=== PATIENT | female | born 1970 | race Caucasian/White ===

== ENCOUNTER → 2019-05-07 06:50 | Outpatient (CLI) | payer BC, SELFPAY ==
--- NOTE | ~2019-05-07 | MM_ITS ---
EXAMINATION: MM screening [facility] BI w pradeep HISTORY: Screening mammogram TECHNIQUE: Craniocaudal and mediolateral oblique 3-D tomosynthesis images were obtained and synthetic 2-D images were generated. CAD analysis was submitted and interpreted. COMPARISON: 04/10/2018, 03/03/2017, 02/03/2015 bilateral digital screening mammogram examinations BREAST PARENCHYMAL COMPOSITION: There are scattered areas of fibroglandular density. FINDINGS: There is no evidence of suspicious mass, calcification, or architectural distortion to sugg est malignancy in either breast. There has been no suspicious interval change. IMPRESSION: 1. No mammographic evidence of malignancy. 2. Recommend routine screening mammography in one year. BI-RADS Category 1: Negative Reviewed, dictated and finalized at location B. 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
== END ==
PROVIDERS: PCP Student in an Organized Health Care Education/Training Program; Visit Provider Student in an Organized Health Care Education/Training Program
DX: Z12.31 Encounter for screening mammogram for malignant neoplasm of breast (principal)
CPT/HCPCS: 77063; 77067

== ENCOUNTER → 2020-06-16 07:15 | Outpatient (CLI) | payer BC, SELFPAY ==
--- NOTE | ~2020-06-16 | MM_ITS ---
EXAMINATION: MM screening [facility] BI w pradeep HISTORY: Screening TECHNIQUE: Craniocaudal and mediolateral oblique 3-D tomosynthesis images were obtained and synthetic 2-D images were generated. CAD analysis was submitted and interpreted. COMPARISON: Comparison to multiple prior studies sequentially, with oldest reviewed study dated 09/22. BREAST PARENCHYMAL COMPOSITION: There are scattered areas of fibroglandular density. FINDINGS: There is a developing asymmetry upper outer quadrant of the left breast, middle third. The right breast is stable without evidence for malignancy. IMPRESSION: 1. Focal asymmetry upper outer quadrant of the left breast. 2. Additional mammographic views and possible breast ultrasound are recommended. BI-RADS Category 0: Incomplete: Needs additional imaging evaluation. Reviewed, dictated and finalized at location A. IMPRESSION: 1. Focal asymmetry upper outer quadrant of the left breast. 2. Additional mammographic views and possible breast ultrasound are recommended . BI-RADS Category 0: Incomplete: Needs additional imaging evaluation.
== END ==
PROVIDERS: Visit Provider Student in an Organized Health Care Education/Training Program
DX: Z12.31 Encounter for screening mammogram for malignant neoplasm of breast (principal); R92.8 Other abnormal and inconclusive findings on diagnostic imaging of breast
CPT/HCPCS: 77063; 77067

== ENCOUNTER → 2020-07-07 08:27 | Outpatient (CLI) | payer BC, SELFPAY ==
--- NOTE | ~2020-07-07 | MMUS_ITS ---
3. EXAMINATION: MM diagnostic mammo unilat LT, US breast LT limited HISTORY: Focal mammographic asymmetry reported in upper outer quadrant of left breast on 06/16/2020 sc reening mammogram TECHNIQUE: Additional 3-D tomosynthesis images of the left breast were performed and synthetic 2-D im ages were generated. Rolled medial and rolled lateral craniocaudal views. CAD analysis was submitted and interpreted. High resolution upper outer quadrant left breast ultrasound was performed. COMPARISON: 06/16/2020 bilateral digital screening mammogram FINDINGS: MAMMOGRAPHIC FINDINGS: No suspicious mass, architectural distortion, malignant calcification, skin thickening or retraction is evident. ULTRASOUND: 3:00 6 cm from nipple: Parallel circumscribed sonolucency measuring 2.3 x 4.6 mm, with through transm ission, consistent with small cyst. No suspicious mass or shadowing is detected. IMPRESSION: 1. No mammographic evidence of malignancy 2. Routine annual mammographic screening is recommended BI-RADS Category 2: Benign finding(s). Reviewed, dictated and finalized at location A. IMPRESSION: 1. No mammographic evidence of malignancy 2. Routine annual mammographic screening is recommended BI-RADS Category 2: Benign finding(s).
== END ==
PROVIDERS: Visit Provider Student in an Organized Health Care Education/Training Program
DX: N60.02 Solitary cyst of left breast (principal)
CPT/HCPCS: 76642; 77065

== ENCOUNTER 2021-07-14 07:58 | Outpatient (CLI) | payer BC, SELFPAY ==
--- NOTE | ~2021-07-14 | MM_ITS ---
EXAMINATION: MM screening [facility] BI w pradeep HISTORY: Screening mammogram TECHNIQUE: Craniocaudal and mediolateral oblique 3-D tomosynthesis images were obtained and synthetic 2-D images were generated. CAD analysis was submitted and interpreted. COMPARISON: diagnostic left mammogram and limited left breast ultrasound 06/16/2020, 05/2019, 04/10/2018, 03/03/2017/bilateral screening mammogram examinations BREAST PARENCHYMAL COMPOSITION: There are scattered areas of fibroglandular density. FINDINGS: Stable mild fibroglandular asymmetry Minimal benign calcification. There is no evidence of suspicious mass, calcification, or architectura l distortion to suggest malignancy in either breast. There has been no suspicious interval change. IMPRESSION: 1. No mammographic evidence of malignancy. 2. Recommend routine screening mammography in one year. BI-RADS Category 2: Benign finding(s). Reviewed, dictated and finalized at location A.
== END 2021-07-14 07:59 | disposition home or self-care (01) ==
LOC: ANHIMG 07:59
PROVIDERS: Visit Provider Student in an Organized Health Care Education/Training Program
DX: Z12.31 Encounter for screening mammogram for malignant neoplasm of breast (principal)
CPT/HCPCS: 77063; 77067

== ENCOUNTER 2021-09-15 09:57 | Outpatient (CLI) | payer BC, SELFPAY ==
--- NOTE | ~2021-09-15 | XR_ITS ---
XR hand RT min 3V DATE: 09/15/2021 10:14 INDICATION: Right thumb pain TECHNIQUE: 3 views of right hand COMPARISON: None FINDINGS: There is mild osteoarthritic change at some of the interphalangeal joints and also at the f irst carpometacarpal joint. No fracture, dislocation, periosteal reaction or bone destruction, erosive change or chondrocalcinosi s. 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 IMPRESSION: Mild first carpometacarpal and scattered interphalangeal joint oste oarthritis
== END 2021-09-15 09:58 | disposition home or self-care (01) ==
PROVIDERS: PCP Family Medicine; Visit Provider Family Medicine
DX: M18.11 Unilateral primary osteoarthritis of first carpometacarpal joint, right hand (principal); M19.041 Primary osteoarthritis, right hand
CPT/HCPCS: 73130

== ENCOUNTER 2022-06-03 01:21 | Day surgery (SDC) | payer BC, SELFPAY ==
[2022-05-20 12:51] VITALS: BMI 36.3
--- NOTE | 2022-06-02 15:44 | PM.HPGS ---
History of Present Illness History of Present Illness Consent: Risks, benefits, and alternatives have been discussed and questions answered. Patient agrees to proceed with procedure. Chief complaint: neoplasm screening Narrative: Maria Victoria Velarde is a 52 year old female Referred for colon cancer screening. Review of Systems Review of Systems: All systems reviewed & are unremarkable except as noted in HPI and below PMFSH Past Medical History Medical History Hyperlipidemia Restless leg syndrome Type II diabetes mellitus Surgical History Surgical History History of section x 2 History of cholecystectomy History of endometrial ablation History of tonsillectomy Family History Family History Mother Hypertension Family history of malignant neoplasm of breast in first degree relative Social History Social History Smoking status: Current every day smoker Tobacco type: cigarettes Second hand tobacco smoke exposure: No Alcohol intake: never Living arrangements: with family Spiritual care concerns: No Meds Home Medications and Allergies Home Medications Medication Instructions Recorded Confirmed Type cholecalciferol (vitamin D3) 50 50 mcg PO DAILY 05/22/20 05/20/22 History mcg (2,000 unit) capsule escitalopram oxalate 20 mg tablet 30 mg PO DAILY 05/22/20 05/20/22 History (Lexapro) gabapentin 100 mg capsule 100 mg PO BID 05/22/20 05/20/22 History gabapentin 300 mg capsule 300 mg PO DAILY 05/22/20 05/20/22 History metformin 500 mg tablet 500 mg PO BID 05/22/20 05/20/22 History simvastatin 10 mg tablet 10 mg PO DAILY 05/22/20 05/20/22 History Allergies Allergy/AdvReac Type Severity Reaction Status Date / Time prednisone AdvReac Unknown Swelling Verified 06/03/22 08:17 Exam Const: General: alert Orientation/consciousness: patient oriented x3 Resp: Auscultation: clear to auscultation bilaterally Cardio: Rhythm: regular rhythm GI: GI Palp: Yes Soft to palpation and No Tenderness to palpation present (GI) Neuro: General: patient oriented x3 Assessment and Plan Assessment and plan (1) Colon cancer screening: Code(s): Z12.11 - Encounter for screening for malignant neoplasm of colon Status: Acute Assessment and Plan: Colonoscopy with possible biopsy or polypectomy or cautery or injection of substances.
[2022-06-03 08:18] VITALS: BP 113/76; PULSE 103; RESP 16; TEMP 36.4; O2SAT 96
[2022-06-03] MEDS: LACTATED RINGERS 1,000 ML 150 ML IV CONT (08:26)
[2022-06-03 09:05] LABS: Glucose Point of Care 178 mg/dl (65-105)
--- NOTE | 2022-06-03 09:30 | P.PNAN_ITS ---
Anes - Initial Pre Proc Eval Procedure: Operation Date: 06/03/22 09:30 Proposed Procedures p Screening Colonoscopy - Khanh Alberto MD Date/Time: 06/03/22 09:30 Surgeon: Khanh Alberto MD Pre Op Diagnosis: neoplasm screening Patient Data Age: 52 Gender: F Height: 1.68 m Weight: 100.3 kg Last Vital Signs Temp 97.6 F 06/03/22 08:18 Pulse 103 H 06/03/22 08:18 Resp 16 06/03/22 08:18 BP 113/76 06/03/22 08:18 Pulse Ox 96 06/03/22 08:18 O2 Del Method Room Air 06/03/22 08:18 Allergies Allergy/AdvReac Type Severity Reaction Status Date / Time prednisone AdvReac Unknown Swelling Verified 06/03/22 08:17 Home Medications Medication Instructions Recorded Confirmed Type cholecalciferol (vitamin D3) 50 50 mcg PO DAILY 05/22/20 05/20/22 History mcg (2,000 unit) capsule escitalopram oxalate 20 mg tablet 30 mg PO DAILY 05/22/20 05/20/22 History (Lexapro) gabapentin 100 mg capsule 100 mg PO BID 05/22/20 05/20/22 History gabapentin 300 mg capsule 300 mg PO DAILY 05/22/20 05/20/22 History metformin 500 mg tablet 500 mg PO BID 05/22/20 05/20/22 History simvastatin 10 mg tablet 10 mg PO DAILY 05/22/20 05/20/22 History Laboratory Tests 06/03/22 08:27 POC Capillary Glucose 178 mg/dl H mg/dl (65-105) Patient hx anesthesia problems: none Family hx anesthesia problems: none Results Review: All pre-operative results and documents have been reviewed as part of the pre- operative evaluation. [facility] Past Medical History Medical History Hyperlipidemia Restless leg syndrome Type II diabetes mellitus Surgical History Surgical History History of section x 2 History of cholecystectomy History of endometrial ablation History of tonsillectomy Family History Family History Mother Hypertension Family history of malignant neoplasm of breast in first degree relative Social History Social History Smoking status: Current every day smoker Tobacco type: cigarettes Second hand tobacco smoke exposure: No Alcohol intake: never Living arrangements: with family Spiritual care concerns: No Anes - Eval Final PreProcedure Day of Procedure 06/03/22 09:30 Patient weight: obese Heart: regular rate and rhythm Lungs: clear to auscultation Airway: Mallampati scale class II Neurological: alert and oriented Last oral intake: >/= 8 hours ASA classification: III Emergent: no Anesthetic plan: proceed Anesthesia type and monitoring: general GIVS and standard monitoring Results Review: All pre-operative results and documents have been reviewed as part of the pre- operative evaluation. Informed Consent: The patient's anesthetic plan and its attendant risks and benefits were discussed with the patient/family/POA. Questions were solicited and answers provided to the satisfaction of the patient/family/POA.
[2022-06-03 09:51] VITALS: BP 105/66; PULSE 83; RESP 19; O2SAT 95
[2022-06-03 10:01] VITALS: BP 128/79; PULSE 84; RESP 24; O2SAT 95
[2022-06-03 10:11] VITALS: BP 118/81; PULSE 87; RESP 24; O2SAT 98
== END 2022-06-03 10:20 | disposition home or self-care (01) ==
PROVIDERS: PCP Family Medicine; Visit Provider Internal Medicine Gastroenterology
PROC: 0DJD8ZZ Inspection of Lower Intestinal Tract, Via Natural or Artificial Opening Endoscopic (ICD-10-PCS; CPT 45378; principal; 2022-06-03 09:30)
DX: Z12.11 Encounter for screening for malignant neoplasm of colon (principal); K64.8 Other hemorrhoids; D12.8 Benign neoplasm of rectum; D12.3 Benign neoplasm of transverse colon; D12.0 Benign neoplasm of cecum; K57.30 Diverticulosis of large intestine without perforation or abscess without bleeding; E78.5 Hyperlipidemia, unspecified; E11.9 Type 2 diabetes mellitus without complications; G25.81 Restless legs syndrome; Z79.84 Long term (current) use of oral hypoglycemic drugs; F17.210 Nicotine dependence, cigarettes, uncomplicated; E66.9 Obesity, unspecified; Z68.35 Body mass index [BMI] 35.0-35.9, adult
CPT/HCPCS: 45385; 45380; 82948; 88305; J2704; J7120

== ENCOUNTER → 2022-10-03 07:38 | Outpatient (CLI) | payer BC, SELFPAY ==
--- NOTE | ~2022-10-03 | MM_ITS ---
EXAMINATION: MM diagnostic [facility] BI w pradeep HISTORY: Bilateral focal asymmetries on screening mammogram TECHNIQUE: Additional 3-D tomosynthesis images of the breasts were performed and synthetic 2-D images were generated. CAD analysis was submitted and interpreted. COMPARISON: 09/06/2022, 07/14/2021, 07/07/2020, 06/16/2020, 05/07/2019, 04/10/2018 FINDINGS: There is a return to baseline fibroglandular appearance with spot compression of the breast s in the areas questioned on screening mammogram. No suspicious mass, calcification, or architectural distortion are identified. IMPRESSION: 1. No mammographic evidence of malignancy. 2. Recommend routine screening mammography in one year. BI-RADS Category 1: Negative Reviewed, dictated and finalized at location A.
== END ==
PROVIDERS: PCP Family Medicine; Visit Provider Registered Nurse
DX: R92.8 Other abnormal and inconclusive findings on diagnostic imaging of breast (principal)
CPT/HCPCS: 77062; 77066; G0279

== ENCOUNTER 2022-11-11 15:46 | Outpatient (CLI) | payer BC, SELFPAY ==
--- NOTE | 2022-11-11 | ECG_ITS ---
Measurements Intervals [place] Rate: 86 P: 33 MS: 153 QRS: 69 QRSD: 99 T: 57 QT: 377 QTc: 452 Interpretive Statements SINUS RHYTHM INCOMPLETE RIGHT BUNDLE BRANCH BLOCK [90+ ms QRS DURATION, TERMINAL R IN V1/V2, 40+ ms S IN I/aVL/V4/V5/V6] BORDERLINE ECG NO PREVIOUS ECG AVAILABLE FOR COMPARISON Electronically Signed On 11-12-2022 12:36:40 CDT by Joshua Brewer M.D.
--- NOTE | ~2022-11-11 | XR_ITS ---
EXAMINATION: XR chest 2V Exam Date/Time: 11/11/2022 16:30 CDT HISTORY: preprocedural examination, SURGERY SCHEDULED FOR 11/18 Comparison: 07/31/2014. RESULT: Lines, tubes, and devices: Cholecystectomy clips. Lungs and pleura: Clear. Cardiomediastinal silhouette: Stable. Other: No acute osseous or upper abdominal finding. IMPRESSION: No acute cardiopulmonary process. Reviewed, dictated and finalized at location K.
[2022-11-11 16:50] LABS: Hematocrit 43.9 % (37.0-47.0); Hemoglobin 15.1 g/dL (12.0-15.0); Mean Corpuscular HGB Conc 34.4 g/dl (32-36); Mean Corpuscular Hemoglobin 33.1 pg (26-34); Mean Corpuscular Volume 96.3 fl (80-100); Mean Platelet Volume 9.3 fl (7.4-10.4); Platelet Count Result 283 k/mm3 (150-375); Red Blood Count 4.56 M/mm3 (4.2-5.4); White Blood Count 13.3 K/mm3 (4.5-10.0)
[2022-11-11 17:04] LABS: Alanine Aminotransferase 36 U/L (6-35); Alkaline Phosphatase 72 U/L (38-126); Anion Gap 12 mmol/L (8-16); Aspartate Amino Transferase 41 U/L (14-36); Bilirubin,Total 0.5 mg/dL (0.2-1.3); Blood Urea Nitrogen 9 mg/dL (7-17); Calcium 9.9 mg/dL (8.4-10.2); Carbon Dioxide 25 mmol/L (22-30); Chloride 104 mmol/L (98-107); Estimated Glomerular Filt Rate > 60; Glucose 62 mg/dL (65-110); Sodium 141 mmol/L (137-145)
[2022-11-11 18:34] LABS: Band Neutrophils Percent 1 % (0-6); Eosinophils Absolute Manual 0.13 K/mm3 (0.02-0.5); Eosinophils Percent Manual 1 % (0-4); Lymphocytes Absolute Manual 6.91 K/mm3 (1.1-4.5); Monocytes Absolute Manual 0.66 K/mm3 (0.1-0.90); Monocytes Percent Manual 5 % (3-9); Neutrophils Absolute Manual 5.58 K/mm3 (1.7-7.2); Neutrophils Percent Manual 41 % (46-73); Platelet Estimate Adequate (Adequate); Total Cells Counted 100
[2022-11-11 18:35] LABS: Schistocytes None Seen (NORMAL)
== END 2022-11-11 15:47 | disposition home or self-care (01) ==
LOC: ANHLAB 15:48
PROVIDERS: PCP Family Medicine; Visit Provider Orthopaedic Surgery
DX: Z01.818 Encounter for other preprocedural examination (principal); I45.10 Unspecified right bundle-branch block; G56.01 Carpal tunnel syndrome, right upper limb; I49.8 Other specified cardiac arrhythmias
CPT/HCPCS: 36415; 71046; 80053; 85025; 93005

== ENCOUNTER 2022-12-09 20:21 | Emergency (ER) | payer BC, SELFPAY ==
[2022-12-09] VITALS (13 sets, daily range): BP systolic 115–135; BP diastolic 70–107; PULSE 76–84; RESP 12–19; TEMP 36.3–36.6; O2SAT 94–99
--- NOTE | ~2022-12-09 | CT_ITS ---
EXAMINATION: CT abdomen pelvis w con DATE: 12/09/2022 22:53 INDICATION: Abdominal pain and low back pain TECHNIQUE: Computed tomography (CT) of the abdomen and pelvis was performed with 100 mL Omnipaque-350 intravenous contrast. Automated exposure control and iterative reconstruction technique were employe d. The dose-length product was 1253.03 mGy-cm. COMPARISON: None FINDINGS: Lung bases are clear. Heart size is normal. Atherosclerotic coronary artery calcific lesion. No peric ardial or pleural effusion. Cholecystectomy clips the gallbladder fossa. There are few splenic calcif ication consistent with old granulomatous disease. Liver, and bilateral adrenal glands and kidneys ar e normal. 5 mm likely dystrophic calcification at the body the pancreas cephalad to the normal calibe r main pancreatic duct suggesting sequela of chronic pancreatitis. Pancreas otherwise unremarkable wi th no peripancreatic changes suggest acute pancreatitis. Normal retrocecal appendix. No abnormal mina l wall thickening or obstruction. Bladder, anteverted uterus and bilateral adnexa are unremarkable. 6 mm nabothian cysts at the cervix. Very small fat-containing left inguinal hernia. No free intraperit plunkett gas or fluid. No pathologically enlarged abdominal or pelvic lymphadenopathy. Moderate thoracic and mild lumbar spondylosis. IMPRESSION: 1. No acute intra-abdominal/pelvic process. Reviewed, dictated and finalized at location A.
[2022-12-09 20:59] LABS: Hematocrit 40.5 % (37.0-47.0); Hemoglobin 14.1 g/dL (12.0-15.0); Mean Corpuscular HGB Conc 34.8 g/dl (32-36); Mean Corpuscular Hemoglobin 33.4 pg (26-34); Mean Platelet Volume 9.2 fl (7.4-10.4); Platelet Count Result 213 k/mm3 (150-375); Red Blood Count 4.22 M/mm3 (4.2-5.4); Red Cell Distribution Width 12.6 % (11.5-14.5); White Blood Count 10.7 K/mm3 (4.5-10.0)
[2022-12-09 21:13] LABS: Alanine Aminotransferase 21 U/L (6-35); Albumin Level 4.4 g/dL (3.5-5.1); Alkaline Phosphatase 62 U/L (38-126); Anion Gap 7 mmol/L (8-16); Aspartate Amino Transferase 27 U/L (14-36); Bilirubin,Total 0.5 mg/dL (0.2-1.3); Blood Urea Nitrogen 8 mg/dL (7-17); Calcium 9.4 mg/dL (8.4-10.2); Carbon Dioxide 24 mmol/L (22-30); Chloride 106 mmol/L (98-107); Estimated CRCL calculation 106 ml/min; Estimated Glomerular Filt Rate > 60; Glucose 129 mg/dL (65-110); Lipase 92 U/L (23-300); Sodium 137 mmol/L (137-145)
[2022-12-09 21:29] LABS: Band Neutrophils Percent 1 % (0-6); Eosinophils Percent Manual 1 % (0-4); Lymphocytes Absolute Manual 6.52 K/mm3 (1.1-4.5); Monocytes Absolute Manual 0.74 K/mm3 (0.1-0.90); Monocytes Percent Manual 7 % (3-9); Neutrophils Absolute Manual 3.31 K/mm3 (1.7-7.2); Neutrophils Percent Manual 30 % (46-73); Platelet Estimate Adequate (Adequate); Schistocytes None Seen (NORMAL); Total Cells Counted 100
[2022-12-09 21:30] LABS: Appearance Urine Clear (Clear); Bilirubin Urine Negative (Negative); Blood Urine Negative (Negative); Color Urine Yellow (Yellow); Glucose Urine UA Negative (Negative); Ketones Urine Negative (Negative); Leukocyte Esterase Ur Negative LEU/UL (Negative); Nitrate Urine Negative (Negative); Protein Urine Negative (Negative); Specific Grav Ur 1.011 (1.001-1.035); Urobilinogen Urine 0.2 mg/dL (<2.0); pH Urine 5.5 (5.0-9.0)
[2022-12-09 21:43] LABS: Add Urine Microscopic? NO
[2022-12-09] MEDS: ACETAMINOPHEN 500 MG TABLET 1000 MG PO (22:10)
[2022-12-09] MEDS: methocarbamoL 750 MG TABLET 1500 MG PO (22:11)
[2022-12-09] MEDS: LIDOCAINE 5% PATCH 1 PATCH TRANSDERM (22:11)
--- NOTE | 2022-12-09 23:43 | ED.GENADULT ---
HPI - General Adult General Chief complaint: Abdominal Pain Stated complaint: abd pain Time Seen by Provider: 12/09/22 21:31 History of Present Illness HPI narrative: This is a 52-year-old female presenting with lower back and abdomen pain. She says it started yesterday and is a stabbing/ aching pain that is bandlike across her back and lower abdomen. Date out 10 intensity constant. She has never had pain like this before, is worse with movement and there are no exacerbating symptoms. She denies fever chills nausea vomiting diarrhea chest pain difficulty breathing, constipation, vaginal discharge bleeding or urinary symptoms. She has not taken anything for pain. no history of cancer, fevers, IV drug abuse, trauma, urinary incontinence, bowel incontinence or saddle anesthesia. Related Data Home Medications Medication Instructions Recorded Confirmed cholecalciferol (vitamin D3) 50 50 mcg PO DAILY 05/22/20 05/20/22 mcg (2,000 unit) capsule escitalopram oxalate 20 mg tablet 30 mg PO DAILY 05/22/20 05/20/22 (Lexapro) gabapentin 100 mg capsule 100 mg PO BID 05/22/20 05/20/22 gabapentin 300 mg capsule 300 mg PO DAILY 05/22/20 05/20/22 metformin 500 mg tablet 500 mg PO BID 05/22/20 05/20/22 simvastatin 10 mg tablet 10 mg PO DAILY 05/22/20 05/20/22 Allergies Allergy/AdvReac Type Severity Reaction Status Date / Time prednisone AdvReac Unknown Swelling Verified 08/04/22 12:39 [facility] Past Medical History Medical History Diverticulosis Hyperlipidemia Restless leg syndrome Type II diabetes mellitus Surgical History Surgical History History of section x 2 History of cholecystectomy History of colonoscopy 06/03/22 History of endometrial ablation History of tonsillectomy Family History Family History Mother Hypertension Family history of malignant neoplasm of breast in first degree relative Social History Social History Smoking status: Current every day smoker Tobacco type: cigarettes Second hand tobacco smoke exposure: No Alcohol intake: never Substance use: never Lack of Transportation: No Lack of Food: Never True Current Housing: I Have Housing Concerned About Future Housing: No Difficulty Paying Gas/Electric Bills: No Difficulty Paying for Meds: No Currently Unemployed: No Education: Trade/Vocational Certificate Difficulty w/ Childcare or Family Care: No Living arrangements: with family Occupation/Education: occupation Gender identity (if verbalized by the patient): Female Sexual Orientation (if Verbalized by the Patient): Straight or Heterosexual Spiritual care concerns: No Exam Narrative: APPEARANCE: No apparent distress. Head: atraumatic. EYES: EOMI, NOSE: Atraumatic NECK: Trachea midline RESPIRATORY: No increased rate of breathing, CTAB CARDIOVASCULAR: RRR, ABDOMINAL: soft nontender no guarding or rebound, no CVA tenderness MUSCULOSKELETAl: tenderness to palpation over the paralumbar muscles on the back, NEURO: Alert. Moving 4/4 extremities SKIN:: Warm, dry. Normal color PSYCHIATRIC: Normal affect Course Vital Signs Vital signs: Vital Signs Temperature 97.4 F L 12/09/22 20:39 Pulse Rate 81 12/09/22 20:39 Respiratory Rate 18 12/09/22 20:39 Blood Pressure 130/79 12/09/22 20:39 Pulse Oximetry 98 12/09/22 20:39 Oxygen Delivery Room Air 12/09/22 20:39 Temperature 97.8 F 12/09/22 21:49 Pulse Rate 83 12/09/22 21:49 Respiratory Rate 15 12/09/22 21:49 Blood Pressure 135/77 12/09/22 21:49 Pulse Oximetry 95 12/09/22 21:49 Oxygen Delivery Room Air 12/09/22 20:39 Medical Decision Making [facility] Narrative Medical decision making narrative: -Course: 52-year-old female presenting w
== END 2022-12-10 00:16 | disposition home or self-care (01) ==
PROVIDERS: Emergency Provider Emergency Medicine; PCP Family Medicine
DX: M54.50 Low back pain, unspecified (principal); E78.5 Hyperlipidemia, unspecified; E11.9 Type 2 diabetes mellitus without complications; F17.210 Nicotine dependence, cigarettes, uncomplicated
CPT/HCPCS: 36415; 74177; 80053; 81003; 83690; 85025; 99284; A9270; Q9967

== ENCOUNTER 2023-09-07 09:29 | Emergency (ER) | payer BC, SELFPAY ==
--- NOTE | ~2023-09-07 | CT_ITS ---
EXAMINATION: CT abdomen pelvis w con DATE: 09/07/2023 10:28 INDICATION: Lower abdominal pain. Nausea, vomiting, and diarrhea. TECHNIQUE: Computed tomography (CT) of the abdomen and pelvis was performed with 100 mL Omnipaque 350 intravenous contrast. Automated exposure control and iterative reconstruction technique were employe d. The dose-length product was 379.62 mGy-cm. COMPARISON: CT abdomen and pelvis 12/09/2022 FINDINGS: The visualized portions of the lung bases demonstrate minimal atelectasis. No pleural effus ion. The heart size is normal. There are coronary artery calcifications. No pericardial effusion. The liver is normal. There are changes of cholecystectomy. Calcifications in the spleen are consistent w ith old granulomatous disease. The pancreas, adrenal glands, and kidneys are normal. There are no dil ated loops of bowel. The appendix is normal. There are no pathologically enlarged lymph nodes. There is no free intraperitoneal fluid. There is calcified atherosclerosis of the aorta and many of the oth er arteries. There is moderate thoracic spondylosis and mild lumbar spondylosis. IMPRESSION: 1. No etiology for the patient's symptoms. Reviewed, dictated and finalized at location A.
--- NOTE | ~2023-09-07 | XR_ITS ---
EXAMINATION: XR chest 1V portable DATE: 09/07/2023 10:41 INDICATION: Weakness. Vomiting. Diarrhea. Nausea. TECHNIQUE: A single frontal view of the chest was obtained. COMPARISON: Chest 2 views 11/11/2022, CT abdomen and pelvis 09/07/2023 FINDINGS: There is no pneumonia, pleural effusion, or pneumothorax. The heart size is normal. IMPRESSION: 1. No acute cardiopulmonary disease. Reviewed, dictated and finalized at location A.
[2023-09-07 09:43] VITALS: BP 114/75; PULSE 89; RESP 19; TEMP 36.5; O2SAT 95
[2023-09-07 09:51] LABS: Basophils Percent Auto 0.3 % (0.2-1.2); Eosinophils Absolute Auto 0.1 K/mm3 (0-0.3); Eosinophils Percent Auto 0.7 % (0-4.4); Hematocrit 42.3 % (37.0-47.0); Hemoglobin 14.7 g/dL (12.0-15.0); Immature Granulocyte Absolute 0.04 K/mm3 (0.00-0.031); Immature Granulocyte Percent A 0.3 % (0-0.5); Lymphocytes Absolute Auto 6.04 K/mm3 (0.9-3.2); Mean Corpuscular HGB Conc 34.8 g/dl (32-36); Mean Corpuscular Hemoglobin 33.6 pg (26-34); Mean Corpuscular Volume 96.8 fl (80-100); Mean Platelet Volume 9.2 fl (7.4-10.4); Monocytes Absolute Auto 0.6 K/mm3 (0.1-0.6); Monocytes Percent Auto 4.3 % (2.6-8.5); Neutrophils Absolute Auto 6.3 K/mm3 (1.3-6.7); Neutrophils Percent Auto 48.4 % (45.5-73.1); Platelet Count Result 250 k/mm3 (150-375); Red Blood Count 4.37 M/mm3 (4.2-5.4); Red Cell Distribution Width 12.8 % (11.5-14.5); White Blood Count 13.1 K/mm3 (4.5-10.0)
[2023-09-07 09:52] LABS: Appearance Urine Clear (Clear); Bilirubin Urine Negative (Negative); Blood Urine Negative (Negative); Color Urine Yellow (Yellow); Glucose Urine UA Negative (Negative); Ketones Urine Negative (Negative); Leukocyte Esterase Ur Negative LEU/UL (Negative); Nitrate Urine Negative (Negative); Protein Urine Negative (Negative); Urobilinogen Urine 0.2 mg/dL (<2.0)
[2023-09-07 10:03] LABS: Alanine Aminotransferase 26 U/L (6-35); Albumin Level 4.8 g/dL (3.5-5.1); Alkaline Phosphatase 70 U/L (38-126); Anion Gap 9 mmol/L (4-12); Aspartate Amino Transferase 36 U/L (14-36); Bilirubin,Total 0.5 mg/dL (0.2-1.3); Blood Urea Nitrogen 7 mg/dL (7-17); Calcium 9.7 mg/dL (8.4-10.2); Carbon Dioxide 25 mmol/L (22-30); Chloride 105 mmol/L (98-107); Estimated CRCL calculation 99 ml/min; Estimated Glomerular Filt Rate > 60; Glucose 101 mg/dL (65-110); Lipase 90 U/L (23-300); Potassium 3.9 mmol/L (3.4-5.0); Sodium 139 mmol/L (137-145)
[2023-09-07 10:09] LABS: Add Urine Microscopic? NO; Specific Grav Ur 1.004 (1.001-1.035)
--- NOTE | 2023-09-07 10:13 | ECG_ITS ---
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 Measurements Intervals [place] Rate: 71 P: 46 IA: 172 QRS: 63 QRSD: 102 T: 44 QT: 428 QTc: 465 Interpretive Statements SINUS RHYTHM No previous ECG available for comparison Electronically Signed On 09-07-2023 13:50:36 CDT by Elle Early M.D.
--- NOTE | 2023-09-07 10:16 | ED.NAVMDI ---
HPI - Nausea/Vomiting/Diarrhea General Chief complaint: Nausea/Vomiting/Diarrhea Stated complaint: N/V/D, weakness X2 days Time Seen by Provider: 09/07/23 09:53 History of Present Illness HPI Narrative: 53-year-old female with a history of hyperlipidemia, type 2 diabetes, diverticulosis presents to the emergency department for N/V intermittently for a few months, worsening over the past 2 weeks. Also reporting some lower abdominal pain. Patient states every time she eats something she feels sick to her stomach and sometimes vomits. She states she has not been eating or drinking well for the past few days. She presents with her daughter at bedside he states the reason they came to the ED today was because the patient was so weak she cannot put her on a ponytail. She reports prior history of cholecystectomy, otherwise no other abdominal surgeries. She denies cough or congestion, chest pain shortness of breath, fever, dysuria or hematuria. She is reporting some pain to her flanks as well. She also notes that she has not been taking her med and dry RO because she cannot get it from the pharmacy. She said taking this 2 weeks ago. She is taking remainder of her medications including metformin. she does note that she has persistent diarrhea since her gallbladder has been removed. Related Data Home Medications Medication Instructions Recorded Confirmed cholecalciferol (vitamin D3) 50 50 mcg PO DAILY 05/22/20 08/14/23 mcg (2,000 unit) capsule escitalopram oxalate 20 mg tablet 30 mg PO DAILY 05/22/20 08/14/23 (Lexapro) gabapentin 100 mg capsule 100 mg PO BID 05/22/20 08/14/23 gabapentin 300 mg capsule 300 mg PO DAILY 05/22/20 08/14/23 metformin 500 mg tablet 500 mg PO BID 05/22/20 08/14/23 simvastatin 10 mg tablet 10 mg PO DAILY 05/22/20 08/14/23 tirzepatide 2.5 mg/0.5 mL 2.5 mg subcut WEEKLY 08/14/23 08/14/23 subcutaneous pen injector (Franck) Allergies Allergy/AdvReac Type Severity Reaction Status Date / Time prednisone AdvReac Unknown Swelling Verified 09/07/23 09:45 Review of Systems Review of Systems: CONSTITUTIONAL: Denies fever, chills, or sweats. EYES: Denies visual changes, redness, or discharge. ENT: Denies rhinorrhea, congestion, sore throat, or otalgia. CARDIOVASCULAR: Denies chest pain, palpitations, or edema. RESPIRATORY: Denies cough or dyspnea. GASTROINTESTINAL: See HPI GENITOURINARY: Denies dysuria or hematuria. SKIN: Denies rash or itching. MUSCULOSKELETAL: Denies back pain, joint pain, or myalgia. NEUROLOGIC: Denies headache, numbness, or weakness. PSYCHIATRIC: Denies anxiety or depression. [facility] Past Medical History Medical History Diverticulosis Hyperlipidemia Restless leg syndrome Type II diabetes mellitus Surgical History Surgical History History of section x 2 History of cholecystectomy History of colonoscopy 06/03/22 History of endometrial ablation History of tonsillectomy Family History Family History Mother Hypertension Family history of malignant neoplasm of breast in first degree relative Social History Social History Smoking status: Current every day smoker Tobacco type: cigarettes Second hand tobacco smoke exposure: No Alcohol intake: never Substance use: never Lack of Transportation: No Lack of Food: Never True Current Housing: I Have Housing Concerned About Future Housing: No Difficulty Paying Gas/Electric Bills: No Difficulty Paying for Meds: No Currently Unemployed: No Education: Trade/Vocational Certificate Difficulty w/ Childcare or Family Care: No Living arrangements: with family Occupation/Education: occupation Gender identity (if verbalized by the patient): Female Sexual [place]
[2023-09-07 10:31] LABS: Anisocytosis 1+
[2023-09-07 10:32] LABS: Atypical Lymphocytes Present; Platelet Estimate Adequate (Adequate); Schistocytes None Seen
[2023-09-07] MEDS: ONDANSETRON INJ 4 MG/2 ML VIAL IV PUSH (10:55)
[2023-09-07] MEDS: SODIUM CHLORIDE 0.9% IV 1,000 ML 999 ML IV CONT (10:55)
[2023-09-07 11:27] LABS: Lipase 91 U/L (23-300)
[2023-09-07 11:39] LABS: Influenza A QL RT-PCR Negative (Negative); Influenza B QL RT-PCR Negative (Negative); SARS-CoV-2 RNA PCR Negative (Negative)
[2023-09-07 12:18] VITALS: BP 126/78; PULSE 78; RESP 18; TEMP 36.8; O2SAT 100
== END 2023-09-07 12:22 | disposition home or self-care (01) ==
PROVIDERS: Emergency Medicine; Emergency Provider Physician Assistant; PCP Family Medicine
DX: R11.2 Nausea with vomiting, unspecified (principal); Z20.822 Contact with and (suspected) exposure to COVID-19; E78.5 Hyperlipidemia, unspecified; E11.9 Type 2 diabetes mellitus without complications; G25.81 Restless legs syndrome; F17.210 Nicotine dependence, cigarettes, uncomplicated; Z90.49 Acquired absence of other specified parts of digestive tract; Z79.899 Other long term (current) drug therapy; Z79.85 Long-term (current) use of injectable non-insulin antidiabetic drugs; Z79.84 Long term (current) use of oral hypoglycemic drugs
CPT/HCPCS: 36415; 71045; 74177; 80053; 81003; 83605; 83690; 85025; 87636; 93005; 96361; 96374; 99284; J2405; J7030; Q9967

== ENCOUNTER 2023-11-02 07:19 | Outpatient (CLI) | payer BC, SELFPAY ==
--- NOTE | ~2023-11-02 | MM_ITS ---
EXAMINATION: MM screening [facility] BI w pradeep HISTORY: Screening TECHNIQUE: Craniocaudal and mediolateral oblique 3-D tomosynthesis images were obtained and synthetic 2-D images were generated. CAD analysis was submitted and interpreted. COMPARISON: Comparison to multiple prior studies sequentially, with oldest reviewed study dated 07/2019. BREAST PARENCHYMAL COMPOSITION: There are scattered areas of fibroglandular density. FINDINGS: There is no evidence of suspicious mass, calcification, or architectural distortion to sugg est malignancy in either breast. There has been no suspicious interval change. IMPRESSION: 1. No mammographic evidence of malignancy. 2. Recommend routine screening mammography in one year. BI-RADS Category 1: Negative Reviewed, dictated and finalized at location B.
== END 2023-11-02 07:20 ==
PROVIDERS: PCP Nurse Practitioner Family; Visit Provider Nurse Practitioner Family
DX: Z12.31 Encounter for screening mammogram for malignant neoplasm of breast (principal)
CPT/HCPCS: 77063; 77067

== ENCOUNTER 2024-05-14 00:24 | Day surgery (SDC) | payer BC, SELFPAY ==
[2024-04-29 13:33] VITALS: BMI 25.0
--- OUTSIDE RECORDS SUMMARY | 2024-05-14 00:28 | XMS_ITS | Clinical Summary ---
Author Organization [facility] Address [address] [place] [address] Care Team Providers Care Dinkey Engine Operator Name Role Phone Unavailable Primary Care Provider Unavailabl e Source Comments [facility],non-owned Affiliates and Associated Physician Practices is amultiple site organization consisting of ambulatory clinics and hospital sitesin [place], [place], [place] and [place]. This disclosure is being madepursuant to the Care Everywhere program and may not contain all information available regarding this patient. Last updated 17.[facility] Allergies Active Allergy Reactions Criticality Noted Date Comments Prednisone Swelling 06/02/2019 Medications * Be aware that medications may not be up to date on this document. Alwaysverify current medications with the patient. Medication Sig Dispensed Refills Start Date End Date Status escitalopram (LEXAPRO) 20 MG tablet escitalopram 20 mg tablet TK 1 AND 1/2 TS PO QD Active gabapentin (NEURONTIN) 100 MG capsule gabapentin 100 mg capsule Active metFORMIN (GLUCOPHAGE) 1000 MG tablet metformin 1,000 mg tablet Active rOPINIRole (REQUIP) 0.5 MG tablet ropinirole 0.5 mg tablet Active simvastatin (ZOCOR) 20 MG tablet simvastatin 20 mg tablet Active Social History Tobacco Use Types Packs/Day Years Used Date Smoking Tobacco: Every Day Cigarettes 1 30 Smokeless Tobacco: Never Sex and Gender Information Value Date Recorded Sex Assigned at Not on file Gender Identity Female 06/02/2019 10:26 AM MUSIC INDUSTRY INTERN Sexual Orientation Not on file Last Filed Vital Signs Vital Sign Reading Time Taken Comments Blood Pressure - - Pulse 123 06/02/2019 10:06 AM MUSIC INDUSTRY INTERN Temperature 37.1 C (98.7 F) 06/02/2019 10:06 AM MUSIC INDUSTRY INTERN Respiratory Rate 20 06/02/2019 10:06 AM MUSIC INDUSTRY INTERN Oxygen Saturation 92% 06/02/2019 10:06 AM MUSIC INDUSTRY INTERN Inhaled Oxygen Concentration - - Weight 108.9 kg (240 lb) 06/02/2019 10:06 AM MUSIC INDUSTRY INTERN Height 167.6 cm (5' 6 ) 06/02/2019 10:06 AM MUSIC INDUSTRY INTERN Body Mass Index 38.74 06/02/2019 10:06 AM MUSIC INDUSTRY INTERN Plan of Treatment Health Maintenance Due Date Last Done Comments COLOGUARD (AGES 45-75) - COL ON CA SCREENING 1971 COLON MONITORING 1971 COLONOSCOPY - COLON CA SCREENING 1971 CT COLONOGRAPHY - COLON CA SCREENING 1971 Colorectal Cancer Screening 1971 FIT - COLON CA SCREENING 1971 FLEX SIG - COLON CA SCREENING 1971 MAMMOGRAM 1971 PAP SMEAR 1971 HIV SCREENING 05/31/1986 HEPATITIS C SCREENING 05/27/1989 DTAP/TDAP/TD VACCINES (1 - Tdap) 05/31/1990 HEPATITIS B VACCINE (1 of 3 - 19+ 3-dose series) 05/31/1990 PNEUMOCOCCAL VACCINE 50+ (1 of 2 - PCV) 05/31/1990 PNEUMOCOCCAL VACCINE (1 of 2 - PCV) 05/31/1990 SCREENING FOR DIABETES 06/02/2019 ZOSTER VACCINE (1 of 2) 05/31/2021 COVID-19 VACCINE (1 - 2023-2 5 season) 2023 INFLUENZA VACCINE (#1) 2023 DEPRESSION SCREENING 04/03/2024 HIB VACCINE Aged Out No longer eligi ble based on patient's age to complete this topic HPV VACCINE Aged Out No longer eligi ble based on patient's age to complete this topic MENINGOCOCCAL (Group B) VACCINE Aged Out No longer eligible based on patient's age to complete this topic MENINGOCOCCAL VACCINE Aged Out No tristan zulema eligible based on patient's age to complete this topic Maria Victoria Velarde Personal/Family Self 1970 [facility] [place] [address]
--- OUTSIDE RECORDS SUMMARY | 2024-05-14 00:28 | XMS_ITS | Referral Summary ---
Author Organization [facility] Address [address] [place] [address] Care Team Providers Care Kaiako Kura Kaupapa Maori Name Role Phone Unavailable Primary Care Provider Unavailabl e Source Comments [facility],non-owned Affiliates and Associated Physician Practices is amultiple site organization consisting of ambulatory clinics and hospital sitesin [place], [place], [place] and [place]. This disclosure is being madepursuant to the Care Everywhere program and may not contain all information available regarding this patient. Last updated 17.[facility] Allergies Active Allergy Reactions Criticality Noted Date [...] file Gender Identity Female 06/02/2019 10:26 AM BAKER PASTRY Sexual Orientation Not on file Last Filed Vital Signs Vital Sign Reading Time Taken Comments Blood Pressure - - Pulse 123 06/02/2019 10:06 AM BAKER PASTRY Temperature 37.1 C (98.7 F) 06/02/2019 10:06 AM BAKER PASTRY Respiratory Rate 20 06/02/2019 10:06 AM BAKER PASTRY Oxygen Saturation 92% 06/02/2019 10:06 AM BAKER PASTRY Inhaled Oxygen Concentration - - Weight 108.9 kg (240 lb) 06/02/2019 10:06 AM BAKER PASTRY Height 167.6 cm (5' 6 ) 06/02/2019 10:06 AM BAKER PASTRY Body Mass Index 38.74 06/02/2019 10:06 AM BAKER PASTRY Plan of Treatment Not on file
--- OUTSIDE RECORDS SUMMARY | 2024-05-14 00:28 | XMS_ITS | Clinical Summary ---
Author Organization [facility] [address] Address [address] [place] [address] Care Team Providers Care Marksmanship Instructor Name Role Phone Stacey Caldwell MD Primary Care Provider + Stacey Phillip DO Unavailable [phone] Allergies Active Allergy Reactions Criticality Noted Date Comments Prednisone Medications escitalopram (LEXAPRO) 20 mg tablet Take 1 tablet (20 mg total) by mouth daily Active gabapentin (NEURONTIN) 100 mg capsule Take 2 capsules (200 mg total) by mouth 2 (two) times a day after lunch and dinner Active metFORMIN (GLUCOPHAGE) 1,000 mg tablet Take 1 tablet (1,000 mg total) by mouth 2 (two) times a day Active simvastatin (ZOCOR) 80 mg tablet Take 1 tablet (80 mg total) by mouth every evening Active Mounjaro 7.5 mg/0.5 mL pen injector ADMINISTER 0.5 ML UNDER THE SKIN EVERY WEEK 3 Active meloxicam (MOBIC) 15 mg tablet Take 1 tablet (15 mg total) by mouth daily 4 Active omega-3 fatty acids-fish oil 300-1,000 mg capsule Take 2,400 mg by mouth daily Active cholecalciferol (VITAMIN D-3) 5,000 unit tablet daily Active aspirin 81 mg enteric coated tablet Take 1 tablet (81 mg total) by mouth daily 30 tablet 11 4 01/05/20 25 Active nicotine 21-14-7 mg/24 hr patch, TD daily, sequentialIndic ations:Tobacco abuse counseling Place 21 mg on the skin daily AND 14 mg daily AND 7 mg daily. 14 patch Active Active Problems Problem Noted Date Diagnosed Date Tobacco abuse counseling 01/05/2024 Hyperlipidemia associated with type 2 diabetes m roslynitus 01/05/2024 Coronary artery calcification 01/05/2024 Other chest pain 12/07/2023 Social History Tobacco Use Types Packs/Day Years Used Date Smoking Tobacco: Every Day Cigarettes Tobacco Cessation:Ready to Q uit: Not Asked; Counseling Given: Not Answered [facility] Utilities Answer Date Recorded In the past 12 months has th e [employer], gas, oil, or water [employer] threatened to shut off services in your home? No 12/07/2023 Social Connection and Isolat ion Panel [NHANES] Answer Date Recorded In a typical week, how many times do you talk on the phone with family, friends, or neighbors? More than three times a week 12/07/2023 How often do you get togethe r with friends or relatives? More than three times a week 12/07/2023 How often do you attend chur ch or buddhist services? Never 12/07/2023 Do you belong to any clubs o r organizations such as tenriism groups, unions, fraternal or athletic groups, or school groups? No 12/07/2023 How often do you attend meet ings of the clubs or organizations you belong to? Never 12/07/2023 Are you , , di vorced, , never , or living with a partner? 12/07/2023 Overall Financial Resource Strain (CARDIA) Answe r Date Recorded How hard is it for you to pa y for the very basics like food, housing, medical care, and heating? Not hard at all 12/07/2023 Hunger Vital Sign Answer Date Recorded Within the past 12 months, y ou worried that your food would run out before you got the money to buy more. Never true 12/07/19 24 Within the past 12 months, t he food you bought just didn't last and you didn't have money to get more. Never true 12/07/2023 PRAPARE - Transportation Answer Date Re corded In the past 12 months, has l ack of transportation kept you from medical appointments or from getting medications? No 08/2023 In the past 12 months, has l ack of transportation kept you from meetings, work, or from getting things needed for daily living? No 12/07/2023 Housing Stability Vital Sign Answer Brady e Recorded In the last 12 months, was t here a time when you were not able to pay the mortgage or rent on time? No 12/07/2023 In the past 12 months, how m any times have you moved where you were living? 0 12/07/2023 At any time in the past 12 m [facility], were you homeless or living in a chcf (including now)? No 12/07/2023 Personal Safety Answer Date Recorded Have you ever been in or are you currently in a harmful physical or emotional relationship or is someone making you feel afraid or unsafe? 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 Gender Identity Not on file Sexual Orientation Not on file Obstetrics History Last Filed Vital Signs Vital Sign Reading Time Taken Comments Blood Pressure 106/70 01/05/2024 10:27 AM CDT Pulse 87 01/05/2024 10:27 AM CDT Temperature 36.3 C (97.3 F) 12/07/2023 3:30 AM CDT Respiratory Rate 14 01/05/2024 10:27 AM CDT Oxygen Saturation 93% 01/05/2024 10:27 AM CDT Inhaled Oxygen Concentration - - Weight 68.5 kg (151 lb) 01/05/2024 10:27 AM CDT Height 165.1 cm (5' 5 ) 01/05/2024 10:27 AM CDT Body Mass Index 25.13 01/05/2024 10:27 AM CDT Plan of Treatment Health Maintenance Due Date Last Done Comments Albumin Creatinine Ratio, Urine 1971 Breast Cancer Screening-Mammogram 1971 Cervical Cancer Screening 1971 Colon Cancer Screening-Colonoscopy 1971 Depression Screening 1971 Hepatitis C Screening 1971 Dilated Eye Exam 1971 Foot Exam 1971 Pneumococcal vaccine <65 (1 of 2 - PCV) 05/31/1977 Hepatitis B Screening 05/31/1989 Regular Well Visit/Exam 18-64 05/31/1989 Zoster Vaccine (1 of 2) 05/31/2021 Covid-19 Vaccine (3 - season) 2023, 07/11/2020 Influenza Vaccine (#1) 2023 Hemoglobin A1C 06/05/2024 12/07/2023 Lipid Panel 12/06/2024 12/07/2023 eGFR 12/06/2024 12/07/2023, 12/06/2023 DTaP/Tdap/Td Vaccine (2 - Td or Tdap) 10/26/2032 Procedures Procedure Name Priority Date/Time Associated Diagnosis Comments EGFR Routine 12/07/2023 4:35 AM CDT HEMOGLOBIN A1C Routine 12/07/2023 4:35 AM CDT LIPID PANEL Routine 12/07/2023 4:35 AM CDT from Last 3 Months or Most Recently Relevant to Health Maintenance Results * eGFR (12/07/2023 4:35 AM CDT) eGFR >90 >=60 mL/min/1. 73 m2 Comment: Interpretive Data Reference Interval Normal >/= 90 mL/min/1.73m2 Mildly decreased* 60 - 89 mL/min/1.73m2 Mildly to moderately decreased 45 - 59 mL/min/1.73m2 Moderately to severely decreased 30 - 44 mL/min/1.73m2 Severely decreased 15 - 29 mL/min/1.73m2 Kidney Failure < 15 mL/min/1.73m2 *Relative to young adult level Estimated glomerular filtration rate is determined by the 2020 CKD-EPI equation recommended by the National Kidney Foundation (A Unifying Approach to GFR Estimation: Recommendations of the NKF-ASK Task Force on Reassessing the Inclusion of Race in Diagnosing Kidney Disease, JASN 2020). The CKD-EPI equation should not be used for patients with unstable renal function and has not been validated in children and those over 70. Current interpretive data was last reviewed 2021. Blood 12/07/2023 4:35 AM CDT 12/07/2023 4:46 AM CDT Evelyn Negron NP LAB BLOOD ORDERABLES Final R esult Performing Organization Address [facility] Co de Phone Number AMANDA [address] [facility] [place], [place] [id number] * (ABNORMAL) Hemoglobin A1c (12/07/2023 4:35 AM CDT) Hgb A1C 5.7(H) 4.0 - 5.6 % Estimated Average Glucose 117 mg/dL AMANDA Comment: The ADA recommends reporting an estimated Average Glucose (eAG) with all Hemoglobin A1c results using the equation derived from a study of 507 normal and diabetic adults. Minority populations were underrepresented and children were not included. (Diabetes Care 31:9792-0260, 2008). The eAG is not equivalent to a fasting glucose. Blood 12/07/2023 4:35 AM CDT 12/07/2023 4:46 AM CDT Evelyn Negron TECHNOLOGY TRAINING ASSOCIATE LAB BLOOD ORDERABLES Final R esult Performing Organization Address [facility] Co de Phone Number AMANDA ALDANA [id number] [place] [address] * (ABNORMAL) Lipid panel (12/07/2023 4:35 AM CDT) Cholesterol 156 30 - 199 mg/dL Comment: Interpretive Data Ages < or = 19 years Acceptable: <170 mg/dL Borderline high: 170-199 mg/dL High: >or= 200 mg/dL Ages > or = 20 years Desirable: <200 mg/dL Borderline high: 200-239 mg/dL High: >or= 240 mg/dL Literature References: 1. Expert Panel on Integrated Guidelines for Cardiovascular Health and Risk Reduction in Children and Adolescents. Pediatrics 2011;128:S213 2. NCEP Expert Panel. Circulation 2004;110:227 Current Interpretive Data was last revised on 2017. Triglycerides 191(H) <=149 mg/dL AMANDA ALDANA Comment: Interpretive Data Ages < or = 9 years Acceptable: <75 mg/dL Borderline high: 75-99 mg/dL High: >or= 100 mg/dL Ages 10 to 20 years Acceptable: <90 mg/dL Borderline high: 90-129 mg/dL High: >or= 130 mg/dL Ages > or = 20 years Desirable: <150 mg/dL Borderline high: 150-199 mg/dL High: 200-499 mg/dL Very high: >or= 499 mg/dL Literature References: 1. Expert Panel on Integrated Guidelines for Cardiovascular Health and Risk Reduction in Children and Adolescents. Pediatrics 2011;128:S213 2. NCEP Expert Panel. Circulation 2004;110:227 Current Interpretive Data was last revised on 2017. HDL 45 >=40 mg/dL AMANDA Comment: Interpretive Data Ages < or = 19 years Acceptable: >45 mg/dL Borderline low: 40-45 mg/dL Low: <40 mg/dL Ages > or = 20 years Desirable: >or= 60 mg/dL Low: <40 mg/dL Literature References: 1. Expert Panel on Integrated Guidelines for Cardiovascular Health and Risk Reduction in Children and Adolescents. Pediatrics 2011;128:S213 2. NCEP Expert Panel. Circulation 2004;110:227 Current Interpretive Data was last revised on 2017. LDL, calculated 79 <=129 mg/dL AMANDA Comment: Interpretive Data Ages < or = 19 years Acceptable: <110 mg/dL Borderline high: 110-129 mg/dL High: >or= 130 mg/dL Ages > or = 20 years Optimal: <100 mg/dL Near optimal: 100-129 mg/dL Borderline high: 130-159 mg/dL High: >160 mg/dL Calculated using the Franklin LDL-C estimating equation. This equation was implemented on 2023. Prior to this date LDL-C was estimated using the Friedewald equation. Literature References: 1. Expert Panel on Integrated Guidelines for Cardiovascular Health and Risk Reduction in Children and Adolescents. Pediatrics 2011;128:S213 2. NCEP Expert Panel. Circulation 2004;110:227 3. Franklin Chavez al. LILI Cardiol. 2020 August 01;5(5):540-548. doi: 10.1001/[email or web address].2020.0013 Current Interpretive Data was last revised on 2023. Non-HDL Cholesterol 111 mg/dL AMANDA Comment: Interpretive Data Ages < or = 19 years Acceptable: <120 mg/dL Borderline high: 120-144 mg/dL High: >145 mg/dL Ages > or = 20 years When triglycerides are >200 mg/dL, Non-HDL cholesterol is a secondary target of therapy with treatment goals that are 30 mg/dL greater than the LDL cholesterol target. Literature References: 1. Expert Panel on Integrated Guidelines for Cardiovascular Health and Risk Reduction in Children and Adolescents. Pediatrics 2011;128:S213 2. NCEP Expert Panel. Circulation 2004;110:227 Current Interpretive Data was last revised on 2017. Chol/HDL ratio 3 AMANDA JOVAN Blood 12/07/2023 4:35 AM CDT 12/07/2023 4:46 AM CDT us Evelyn Negron NP LAB BLOOD ORDERABLES Final R esult FABIANCK ALDANA [address] Department [place] [address] from Last 3 Months or Most Recently Relevant to Health Maintenance Insurance [employer] [address] [place] [address] Advance Directives For more information, please contact: [phone] * Full Code (Latest Code Status on File) Date Activated Date Inactivated Comments 12/07/2023 1:20 AM 12/07/2023 9:46 PM * Full Code Date Activated Date Inactivated Comments 12/07/2023 1:08 AM 12/07/2023 1:20 AM Healthcare Agents on File Name Relationship Healthcare Agent [facility] Communication Juan Velarde Spouse Health Care Agent Care Teams Marksmanship Instructor Relationship Specialty Start Date End Date Stacey Caldwell MD [address] [place] [address] PCP - General Family Medicine 12/09/22 Stacey Phillip DO [address] [place] [address] Consulting Physician Cardiology 12/07/23
--- OUTSIDE RECORDS SUMMARY | 2024-05-14 00:28 | XMS_ITS | Continuity of Care Document ---
Author Organization [facility] Address [id number] [place] [address] [address] [place] [address] Phone Care Team Providers Care Web Manager Name Role Phone Pamela Patel Unavailable Unavailable Advance Directives Directive Yes / No Effective Date File Name No Information Encounters Encounter Description Practice Location Reason(s) For Visit Diagnoses Date Provider Providers Copied on Encounter [facility], [id number] [place] [address] [address], [place], [place], [id number], [place] tel:[phone] SEC [facility] No Information [address]. [address] [facility] , [address], [place], [address], [place]. tel:[phone] Family History Family Member Type Diagnosis Age At Onset No Information Payers Payer name Insurance type Covered libertarian ID Authoriza tion(s) No Information Social History Type Description Quantity Date Captured Comments Sex Female Smoking Status No Information Chief Complaint And Reason For Visit No Information Reason For Referral Reason For Referral No Information History Of Present Illness Encounter Date Complaint History Of Prese nt Illness No Information Functional Status Date Functional Assessmen t No Information Instructions Date Instruction Additional Infor mation No Information Assessments Type Assessment Date No Information Patient Care Teams Name Effective Dates (start - stop) Status Members No Information
--- OUTSIDE RECORDS SUMMARY | 2024-05-14 00:28 | XMS_ITS | Referral Summary ---
Author Organization [facility] [address] Address [address] [place] [address] Care Team Providers Care Soil Expert Name Role Phone Stacey Caldwell MD Primary Care Provider + Stacey Phillip DO Unavailable [phone] Allergies Active Allergy Reactions Criticality Noted Date [...] uit: Not Asked; Counseling Given: Not Answered [facility] Utilities Answer Date Recorded In the past 12 months has th e [employer], gas, oil, or water [employer] threatened to shut off services in your [...] often do you attend chur ch or christian services? Never 12/07/2023 Do you belong to any clubs o r organizations such as sabianist groups, unions, fraternal or athletic groups, or [...] any time in the past 12 m [facility], were you homeless or living in a alf (including now)? No 12/07/2023 Personal Safety Answer Date Recorded Have you ever been in or are you currently in a harmful physical or emotional relationship or is someone making you feel afraid or unsafe? Denies 12/07/2023 Comments No Sex and Gender Information Value Date Recorded Sex Assigned at Not on file Legal Sex Female 10:12 AM [employer]CHO[employer] Gender Identity Not on file Sexual Orientation Not on file Last Filed [...] 01/05/2024 10:27 AM CDT Plan of Treatment Not on file Procedures Procedure Name Priority Date/Time Associated Diagnosis [...] ORDERABLES Final R esult Performing Organization Address [facility] Co ma Phone Number AMANDA ALDANA [address] [place] [address] * (ABNORMAL) Hemoglobin A1c (12/07/2023 4:35 AM CDT) Hgb A1C 5.7(H) 4.0 - 5.6 % Estimated Average Glucose 117 mg/dL AMANDA ALDANA Comment: The ADA recommends reporting an estimated Average Glucose (eAG) with all Hemoglobin A1c results using the equation derived from a study of 507 normal and diabetic adults. Minority populations were underrepresented and children were not included. (Diabetes Care 31:2893-3272, 2008). The eAG is not equivalent to a fasting glucose. Blood 12/07/2023 4:35 AM CDT 12/07/2023 4:46 AM CDT Evelyn Negron NP LAB BLOOD ORDERABLES Final R esult AMANDA [address] [facility] [place] [address] * (ABNORMAL) Lipid panel (12/07/2023 4:35 AM [...] on 2017. HDL 45 >=40 mg/dL AMANDA ALDANA Comment: Interpretive Data Ages [...] 2017. LDL, calculated 79 <=129 mg/dL AMANDA ALDANA Comment: Interpretive Data Ages [...] NCEP Expert Panel. Circulation 2004;110:227 3. Franklin Guillaume et al. LILI Cardiol. 2020 August 01;5(5):540-548. doi: 10.1001/[email or web address].2020.0013 Current Interpretive Data was last revised on 2023. Non-HDL Cholesterol 111 mg/dL AMANDA ALDANA Comment: Interpretive Data Ages [...] revised on 2017. Chol/HDL ratio 3 AMANDA ALDANA Blood 12/07/2023 4:35 AM CDT 12/07/2023 4:46 AM CDT us Evelyn Negron NP LAB BLOOD ORDERABLES Final R esult AMANDA ALDANA [address] Department [place] [address] from Last 3 Months or Most Recently Relevant to Health Maintenance Insurance [employer] [facility] [employer] [facility] [employer] [facility] Advance Directives For more information, please contact: [phone] * Full Code (Latest Code Status on File) Date Activated Date Inactivated Comments 12/07/2023 1:20 AM 12/07/2023 9:46 PM * Full Code Date Activated Date Inactivated Comments 12/07/2023 1:08 AM 12/07/2023 1:20 AM Healthcare Agents on File Name Relationship Healthcare Agent [facility] Communication Juan Velarde Spouse Health Care Agent Care Teams Soil Expert Relationship Specialty Start Date End Date Stacey Caldwell MD [address] [place] [address] PCP - General Family Medicine 12/09/22 Stacey Phillip DO [address] [address] Consulting Physician Cardiology 12/07/23
--- OUTSIDE RECORDS SUMMARY | 2024-05-14 00:28 | XMS_ITS | Data Portability ---
Author Organization [facility] [employer], Main Office Address [address] [place] [address] Care Team Providers Care Ditcher Operator Name Role Phone CHARY VELASCO Film [employer] Shift Supervisor Unavailable Assessment Encounter Date Assessment Date Assessment LastModified by Organization Details LastModified Time 05/10/2023 05/10/2023 menopausal symptoms-no vasomotor symptoms irritability and forgetfulness may improve now that sleep is imrpoved f/u in 3 months, consider SSRI if no improvement with [email or web address] Not available 05/10/2023 14:28:34 01/01/2024 01/01/2024 I have reconciled the patient's medications post their discharge from inpatient facility. [email or web address] Not available 01/01/2024 09:29:54 Plan of Treatment Reminders Order Date Submit Date Provider Last Modified By Organization Details Last Modified Time Details Appointments Physical/ Annual Wellness 2024 08:30A Markell Jones NP Not available Not available Not available Lab FSH (follicle -stimulat ing hormone), serum 2023 024 [email or web address] [address] [email or web address] [facility], [address] [place], [address], 11/28/2023 08:45:34 lh (luteiniz ing hormone), serum 2023 024 [email or web address] 77 [employer] [facility], [address] [facility], [place], [address], 11/28/2023 08:45:35 estrone (E1), free, serum 2023 024 [email or web address] 77 [employer] [facility], [address] [place], [address], 11/28/2023 08:45:35 progester one, serum 2023 024 [email or web address] 77 [employer] [facility], [address], [place], [address], 11/28/2023 08:45:35 prolactin , serum 2023 024 [email or web address] [employer] [facility], [address], [place], [address], 11/28/2023 08:45:35 testoster one, total, serum 2023 024 [email or web address] [email or web address] [facility], [address], [place], [address], 11/28/2023 08:45:35 Referral ophthalmo logist referral - Please call patient to schedule an appointme nt. Thank you. 2023 024 [facility], [address] [facility], [place], [address], 01/30/2024 07:34:08 Procedures cryosurge ry (PROC) - Right hand, third digit *Please call pt to schedule* 2023 024 geo [facility]d [facility], [address] [place], [address], 04/18/2024 11:26:09 Surgeries None recorded. Imaging None recorded. Medication Orders trazodone 50 mg tablet 2023 024 [email or web address] [id number], [address], [place], [place], [id number], 02/06/2024 16:39:21 escitalop sari 20 mg tablet 2023 024 RE[facility] #[id number], [address], [place], [place], [id number], 08/08/2023 10:30:43 meloxicam 7.5 mg tablet 2023 024 REGINA [id number], [address], [place], [place], [id number], 11/21/2023 09:44:56 Patient TargetsNo targets recorded. Patient Instructions Encounter Date Encounter Id Patient Instructions Last Modified By Organization Details Last Modified Time 01/01/2024 [id number] Thank you for your visit to our office today. We would like to request that you reach out to your referring or previous provider and request that they send us a Summary of Care in electronic form, so that we may have it on file in your medical record. At your visit, we had the medical records we needed to provide you with the best possible care; however, for insurance purposes, an electronic Summary of Care is beneficial. Thank you for your assistance in obtaining this information and we look forward to providing continued care to you. Please review your medication list from the Summary of Care for this visit. If there are any differences from what you are currently taking at home, please call us to discuss. [email or web address] Not available 01/01/2024 09:29:54 Homebound Status : {{Patient has an inability to leave the home without a taxing effort and assistance from another person Does not meet homebound status}} Required Home Health Services: {{none assisted, physical therapy, occupational therapy assisted, physical therapy assisted}} Durable Medical Equipment needed: {{cane walker wal ker with seat manual wheelchair bedsid e commode oxygen}} Billing Guidelines CPT code 50233- Transitional Care Management services with moderate medical decision complexity (epcz-yb-vbhy visit within 14 days of discharge). CPT code 49245- Transitional Care Management services with high medical decision complexity (lxkz-yu-ziyg visit within 7 days of discharge). [email or web address] Not available 01/01/2024 09:29:54 Reason for Referral Wardrobe Coordinator Referral for Type 2 diabetes mellitus without complication Please call patient to schedule an appointment. Thank you. Referring Physician: Carleen Jones, Family Medicine, Encounter Date: 01/01/2024 Results Created Date Observation Date Name Description Value Unit Range Abnormal Flag Note LastModifiedBy Organization Detail LastModifiedTime 11/22/19 24 11/28/2023 ESTRO NE estrone 19 pg/mL Adult Femal e Refer ence Range s for Estro ne: Folli cular Phase : 10-13 8 pg/mL Lutea l Phase : 16-17 3 pg/mL Postm enopa usal Phase : < or = 65 pg/mL Pedia tric Femal e Refer ence Range s for Estro ne: Pre-p ubert al (1-9 years ): < or = 34 pg/mL 10-11 years : < or = 72 pg/mL 12-14 years : < or = 75 pg/mL 15-17 years : < or = 188 pg/mL This test was devel oped and its ricky tical perfo rmanc e gary cteri stics have been deter mined by [employer]. It has not been clear ed or appro yenifer by FDA. This assay has been valid ated pursu ant to the CLIA regul ation s and is used for clini marcell purpo ses. Not Available [email or web address] [facility] [address] [place], [address], 11/28/2023 23:19:08 11/22/19 24 11/28/2023 FSH FSH 92.7 mIU/m L normal Refer ence Range Folli cular Phase 2.5-1 0.2 Mid-c ycle Peak 3.1-1 7.7 Lutea l Phase 1.5- 9.1 Postm enopa usal 23.0- 116.3 Not Available [employer] [facility] [address] [place], [address], 11/28/2023 23:19:09 11/22/19 24 11/28/2023 LH LH 35.9 mIU/m L normal Refer ence Range Folli cular Phase 1.9-1 2.5 Mid-C ycle Peak 8.7-7 6.3 Lutea l Phase 0.5-1 6.9 Postm enopa usal 10.0- 54.7 Not Available [employer] [facility] [address] [place], [address], 11/28/2023 23:19:09 11/22/19 24 11/28/2023 PROLA CTIN prolactin 8.5 NG/mL normal Refer ence Range Femal es Non-p regna nt 3.0-3 0.0 Pregn ant 10.0- 209.0 Postm enopa usal 2.0-2 0.0 Not Available [employer], [employer] [facility] [address] [place], [address], 11/28/2023 23:19:09 11/22/19 24 11/28/2023 PROGE STERO NE progesterone <0.5 NG/mL normal Refer ence Range s Femal e Folli cular Phase < 1.0 Lutea l Phase 2.6-2 1.5 Post menop ausal < 0.5 Pregn aiyana 1st Trime ster 4.1-3 4.0 2nd Trime ster 24.0- 76.0 3rd Trime ster 52.0- 302.0 Not Available [employer], [employer] [facility] [address] [address] , [place], [address], 11/28/2023 23:19:10 11/22/19 24 11/28/2023 TESTO STERO NE, TOTAL , MS testosterone , total, MS 24 NG/dL 2-45 For addit ional infor molly forman refer to https ://ed ati on.qu quintenBlink for iPhone and Android. [employer]/f aq/To Joycelyn smith MSM S (This link is being provi ded for infor kathleen nal/e ducat ional purpo ses only. ) (Note ) This test was devel oped and its ricky tical perfo rmanc e gary cteri stics have been deter mined by [employer]. It has not been clear ed or appro yenifer by the FDA. This assay has been valid ated pursu ant to the CLIA regul ation s and is used for clini marcell purpo ses. CLAUDIA med fusio n [address] [facility] [address] [place] [address] [phone] Cindy Bennett MD, PhD Not Available [employer] [facility] [address] [address], [place], [address], 11/28/2023 23:19:10 09/07/19 24 09/07/2023 CT, abdom en + pelvi s, w/ contr ast No observ ation record ed. [email or web address], [place], [address], 09/21/2023 14:26:13 09/07/19 24 09/07/2023 XR, chest , 1 view No observ ation record ed. [email or web address] [address] [facility] [address], [place], [address], 09/21/2023 14:26:29 Result Notes None recorded. Problems Name Problem SNOMED Code Status Onset Date Resolution Date Notes Provider Name and Address Organization Details Recorded Time Tobacco user 437914641 Active Not Available [facility] 3 09:17:53 Chronic obstructiv e pulmonary disease 94772270 Active Not Available [facility] 3 09:17:53 Type 2 diabetes mellitus without complicati on 234756022 Active Not Available [facility] 3 09:17:53 Restless legs 53740243 Active Not Available [facility] 3 09:17:53 Adjustment disorder with anxious mood 97358244 Active Not Available [facility] 3 09:17:54 Hyperlipid emia 79858433 Active Not Available [facility] 3 09:17:54 Fatigue 16436331 Active Not Available [facility] 3 09:17:54 Skin lesion 50965423 Active Not Available [facility] 3 09:17:54 Pain in right hand 138875106726 109 Active 2022 Stacey Caldwell MD [address], [facility] [address], [place], [address] , [facility] 3 11:26:12 Lateral epicondyli tis of right humerus 179644895200 107 Active 2022 Pee Inman MD [address], [facility] [address], [place], [address] , [facility] 3 11:57:27 Carpal tunnel syndrome of right wrist 666511256047 108 Active 2022 Pee Inman MD [address], [address], [place], [address] , [facility] 3 11:57:33 Vitamin D deficiency 35184566 Active 2022 Stacey Caldwell MD [address], [address], [place], [address] , [facility] 3 08:01:44 Tubular adenoma of colon 497279659 Active 2022 cscope 06/03/22 repeat 5 years Stacey Caldwell MD [address], [address], [place], [address] , [facility] 3 09:09:27 Type 2 diabetes mellitus 15351314 Active 2022 Stacey Caldwell MD [address], [address], [place], [address] , [facility] 3 09:18:37 Insomnia 128786928 Active 2023 Stacey Caldwell MD [address], [address], [place], [address] , [facility] 4 12:00:14 Amenorrhea 68944511 Active 2023 ADRIANNA Storm [address], [address] [place] [address], [address] , [facility] 4 09:34:46 Menopausal symptom 39099187 Active 2023 ADRIANNA Storm [address], [address], [address] , [facility] 4 09:35:56 Arthritis 7441775 Active 2023 ADRIANNA Storm [address], [address], [address] , [employer] [facility] [employer] 4 09:38:37 Hand wart 546809991 Active 2023 ADRIANNA Storm [address], [address], [place], [address] , [facility] [employer] [facility] [employer] 4 09:39:37 Chest pain 14534606 Active 2023 ADRIANNA Storm [address], [facility] [address], [place], [address] , [employer] 4 09:51:51 Problem Notes None recorded. Procedures Surgical History Date Name Laterality Status Provider Name and Address Organization Details Recorded Time 01/01/20 24 Transitional_Care_ Management completed James Acevedo RN [place] [employer] [facility] [employer] [facility] 01/01/2024 09:29:55 06/04/19 23 colonoscopy completed Stacey Caldwell MD [address], [facility] [address], [place], [address], [employer] [facility] [employer] [facility] 09/12/2022 09:12:24 04/03/18 98 cholecystectomy completed Tiffanie Quiroz CNA [facility] [employer] [facility] [employer] [facility] 08/17/2022 09:58:12 04/03/18 89 Hand completed Tiffanie Quiroz DIABETES PHYSICIAN [facility] [employer] [facility] [email or web address] [facility] 08/17/2022 09:57:58 destruction of lesion of uterus completed Not Available [facility] 2022 09:13:35 delivery completed Not Available [facility] 2022 09:13:35 Imaging Results Imaging Date Name Status LastModified by Organiz ation Details LastModified Time 09/07/2023 CT, abdomen + pelvis, w/ contrast completed [address] [place] [address], [address], 09/21/2023 14:26:13 09/07/2023 XR, chest, 1 view completed [address], [address], 09/21/2023 14:26:29 Procedure Notes None recorded. Medical Equipment None Reported. Allergies Allergen ID Allergen Name Allergen Category Reaction Reaction Severity Criticality Documentation Date Start Date Code Code System Note Provider Name and Address Organization Details Recorded Time 39339 prednison e medicatio n other Not available Not available 2022 8640 RxNorm swell ing Not Available [facility] 3 09:22:04 Medications Name Sig Start Date Stop Date Status Note LastModified by Organization Details LastModified Time amoxicilli n 500 mg capsule 04/09 completed Not Available Not Available Not Available ropinirole 1 mg tablet TAKE 1 TABLET BY MOUTH EVERY NIGHT AT BEDTIME active Not Available Not Available No t Available nicotine 14 mg/24 hr daily transderma l patch Apply 1 patch every day by transderm al route for 28 days. active Not Available Not Available No t Available trazodone 50 mg tablet TAKE 1 TABLET BY MOUTH EVERY DAY active Not Available Not Available No t Available azithromyc in 250 mg tablet TAKE 2 TABLETS (500 MG) BY ORAL ROUTE ONCE DAILY FOR 1 DAY THEN 1 TABLET (250 MG) BY ORAL ROUTE ONCE DAILY FOR 4 DAYS 04/09 completed Not Available Not Available Not Available ibuprofen 800 mg tablet TAKE 1 TABLET BY MOUTH THREE TIMES DAILY FOR 7 DAYS NEEDED FOR PAIN 11/20 completed Not Available Not Available Not Available ranitidine 300 mg tablet Take 1 tablet every day by oral route at bedtime for 30 days. 04/09 completed Not Available Not Available Not Available hydrocodon e 5 mg-acetami nophen 325 mg tablet TAKE 1 TO 2 TABLETS BY MOUTH EVERY 4 TO 6 HOURS NEEDED 03/15 completed Not Available Not Available Not Available promethazi ne 6.25 mg/5 mL oral syrup 09/24 completed Not Available Not Available Not Available meloxicam 15 mg tablet TAKE 1 TABLET BY MOUTH EVERY DAY active Not Available Not Available No t Available ondansetro n HCl 4 mg tablet TK 1 T PO Q 6 TO 8 H PRN FOR 7 DAYS 04/09 completed Not Available Not Available Not Available glipizide 10 mg tablet TAKE 1 TABLET BY MOUTH EVERY DAY active Not Available Not Available No t Available sertraline 100 mg tablet TAKE 1 1/2 TABLETS BY MOUTH EVERY DAY 07/11 completed Not Available Not Available Not Available acetaminop hen 300 mg-codeine 30 mg tablet TAKE 1 TABLET BY MOUTH FOUR TIMES DAILY NEEDED 08/17 completed Not Available Not Available Not Available simvastati n 80 mg tablet TAKE 1 TABLET BY MOUTH EVERY DAY IN THE EVENING active Not Available Not Available No t Available sulfametho xazole 800 mg-trimeth oprim 160 mg tablet Take 1 tablet every 12 hours by oral route for 3 days. 06/18 completed Not Available Not Available Not Available omeprazole 40 mg capsule,de layed release Take 1 capsule every day by oral route before meals for 30 days. active Not Available Not Available No t Available aspirin 81 mg tablet,del ayed release TAKE 1 TABLET BY MOUTH EVERY DAY active Not Available Not Available No t Available triamcinol one acetonide 0.1 % topical cream apply to affected areas bid prn active Not Available Not Available No t Available amoxicilli n 500 mg tablet TK 1 T PO TID UNTIL GONE 04/09 completed Not Available Not Available Not Available simvastati n 40 mg tablet Take 1 tablet every day by oral route. active Not Available Not Available No t Available ketorolac 10 mg tablet 07/27 completed Not Available Not Available Not Available ciclopirox 8 % topical solution CHRIS TOPICALLY AA QD 04/09 completed Not Available Not Available Not Available meloxicam 7.5 mg tablet TAKE 1 TABLET BY MOUTH EVERY DAY active Not Available Not Available No t Available amoxicilli n 875 mg tablet Take 1 tablet every 12 hours by oral route for 7 days. active Not Available Not Available No t Available methocarba mol 750 mg tablet TAKE 2 TABLETS BY MOUTH THREE TIMES DAILY active Not Available Not Available No t Available trazodone 100 mg tablet TAKE 1 TABLET BY MOUTH EVERY NIGHT AT BEDTIME NEEDED FOR INSOMNIA 08/07 completed Not Available Not Available Not Available ropinirole 2 mg tablet TAKE 1 TABLET BY MOUTH EVERY NIGHT AT BEDTIME 04/09 completed Not Available Not Available Not Available cephalexin 500 mg capsule TAKE 1 CAPSULE BY MOUTH THREE TIMES DAILY UNTIL ALL TAKEN 03/15 completed Not Available Not Available Not Available simvastati n 20 mg tablet active Not Available Not Available Not Available oseltamivi r 75 mg capsule 09/24 completed Not Available Not Available Not Available metformin 1,000 mg tablet TAKE 1 TABLET BY MOUTH TWICE DAILY active Not Available Not Available No t Available ropinirole 0.5 mg tablet TAKE TWO TABLETS BY MOUTH DAILY AT BEDTIME active Not Available Not Available No t Available nystatin 100,000 unit/gram topical cream APPLY TOPICALLY TO THE AFFECTED AREA TWICE DAILY NEEDED 08/07 completed Not Available Not Available Not Available nicotine 21 mg/24 hr daily transderma l patch UNWRAP AND APPLY 1 PATCH EVERY DAY FOR 42 DAYS active Not Available Not Available No t Available gabapentin 300 mg capsule Take 2 capsules every day by oral route at bedtime for 90 days. 2023 active Not Available Not Available Not Avai lable Banophen 25 mg capsule TAKE 1 CAPSULE BY MOUTH THREE TIMES DAILY NEEDED FOR NAUSEA AND VOMITING active Not Available Not Available No t Available cephalexin 500 mg tablet TAKE 1 TABLET BY MOUTH THREE TIMES DAILY UNTIL GONE 03/15 completed Not Available Not Available Not Available gabapentin 100 mg capsule TK 1 C PO TID 2023 active Not Available Not Available Not Avai lable scopolamin e 1 mg over 3 days transderma l patch APPLY 1 PATCH TOPICALLY TO THE SKIN EVERY 3 DAYS NEEDED FOR NAUSEA OR VOMITING active Not Available Not Available No t Available doxycyclin e hyclate 100 mg tablet Take 1 tablet twice a day by oral route for 21 days. active Not Available Not Available No t Available glipizide 5 mg tablet TAKE 1 TABLET BY MOUTH EVERY DAY 09/12 completed Not Available Not Available Not Available nicotine 7 mg/24 hr daily transderma l patch Apply 1 patch every day by transderm al route for 14 days. active Not Available Not Available No t Available escitalopr am 20 mg tablet TAKE 1 AND 1/2 TABLETS BY MOUTH EVERY DAY active Not Available Not Available No t Available bupropion HCl XL 150 mg 24 hr tablet, extended release TK 1 T PO QD 07/11 completed Not Available Not Available Not Available Chantix 1 mg tablet TAKE 1 TABLET BY MOUTH TWICE DAILY 09/09 completed Not Available Not Available Not Available ProAir HFA 90 mcg/actuat ion aerosol inhaler Inhale 2 puffs every 4 hours by inhalatio n route as needed. 08/17 completed Not Available Not Available Not Available ropinirole ER 4 mg tablet,ext ended release 24 hr TAKE 1 TABLET BY MOUTH EVERY DAY AT BEDTIME 08/08 completed 1 po qnoon Not Available Not Available Not Available ropinirole ER 6 mg tablet,ext ended release 24 hr TAKE 1 TABLET BY MOUTH EVERY DAY 04/09 completed Not Available Not Available Not Available Chantix Starting Month Box 0.5 mg (11)-1 mg (42) tablets in dose pack TAKE DIRECTED 09/09 completed Not Available Not Available Not Available Mounjaro 7.5 mg/0.5 mL subcutaneo us pen injector 0.5 ml sc q week active Not Available Not Available No t Available Mounjaro 5 mg/0.5 mL subcutaneo us pen injector ADMINISTE R 0.5 ML(5MG) UNDER THE SKIN EVERY WEEK 03/15 completed Not Available Not Available Not Available Mounjaro 10 mg/0.5 mL subcutaneo us pen injector 0.5 ml sc qweek active Not Available Not Available No t Available M[employer]jaro 12.5 mg/0.5 mL subcutaneo us pen injector ADMINISTE R 12.5 MG UNDER THE SKIN EVERY WEEK active Not Available Not Available No t Available Mounjaro 2.5 mg/0.5 mL subcutaneo us pen injector ADMINISTE R 0.5 ML UNDER THE SKIN EVERY WEEK 03/15 completed Not Available Not Available Not Available Vitals Date Recorded Body height Body mass index (BMI) Body weight Body temperature Heart rate Oxygen saturation Oxygen saturation in Arterial blood by Pulse oximetry Systolic blood pressure Diastolic blood pressure Provider Name and Address Organization Details Last Updated DateTime 4 165.1 cm 28.6 kg/m2 95598.8 9 g 97.6 [degF] 96 /min 98 % 98 % 122 mm[Hg] 72 mm[Hg] James Acevedo RN [facility] [employer] [facility] 4 14:12:10 Date Recorded Body height Body mass index (BMI) Body weight Body temperature Heart rate Oxygen saturation Oxygen saturation in Arterial blood by Pulse oximetry Systolic blood pressure Diastolic blood pressure Provider Name and Address Organization Details Last Updated DateTime 4 165.1 cm 26.8 kg/m2 26999.3 7 g 98 [degF] 98 /min 97 % 97 % 120 mm[Hg] 70 mm[Hg] James Acevedo RN [facility] [email or web address] [facility] 4 10:02:20 Date Recorded Body height Body mass index (BMI) Body weight Body temperature Heart rate Oxygen saturation Oxygen saturation in Arterial blood by Pulse oximetry Systolic blood pressure Diastolic blood pressure Provider Name and Address Organization Details Last Updated DateTime 4 165.1 cm 25.6 kg/m2 44888.2 2 g 98 [degF] 93 /min 98 % 98 % 116 mm[Hg] 70 mm[Hg] James Acevedo RN [facility] [email or web address] [facility] 4 09:29:16 Date Recorded Body height Body mass index (BMI) Body weight Body temperature Heart rate Oxygen saturation Oxygen saturation in Arterial blood by Pulse oximetry Systolic blood pressure Diastolic blood pressure Provider Name and Address Organization Details Last Updated DateTime 4 165.1 cm 25.3 kg/m2 52532.0 4 g 98 [degF] 88 /min 96 % 96 % 118 mm[Hg] 72 mm[Hg] James Acevedo RN [facility] [email or web address] [facility] 4 09:31:14 Date Recorded Body height Body mass index (BMI) Body weight Provider Name and Address Organization Details Last Updated DateTime 02/06/2024 165.1 cm 25.4 kg/m2 30732.84 g Christal Davis RN [facility] [email or web address] [facility] 02/06/2024 11:04:39 Social History Question Answer Notes LastModified by Organizat ion Details LastModified Time Tobacco Smoking Status Current Every Day Smoker Not Available [employer] 2022 09:13:14 What Is Your Level Of Alcohol Consumption? Occasional Information not available 08/17/2022 In The 14 Days Before Symptom Onset, Have You Had Close Contact With A Laboratory-confir med COVID-19 While That Case Was Ill? No [id number] Information not available 2022 In The 14 Days Before Symptom Onset, Have You Had Close Contact With A Person Who Is Under Investigation For COVID-19 While That Person Was Ill? No [id number] Information not available 2022 What Type Of Diet Are You Following? REGULAR [id number] Information not available 2022 What Was The Date Of Your Most Recent Tobacco Screening? 09/12/2022 Information not available 09/12/2022 How Much Tobacco Do You Smoke? 1 PPD Information not available 08/17/2022 Do You Use Any Illicit Or Recreational Drugs? No [id number] Information not available 2022 How Many Years Have You Smoked Tobacco? 20 Information not available 08/17/2022 Do You Have Any Dietary Restrictions? No [id number] Information not available 2022 Sex: Unknown Functional Status Question Answer Note LastModified by Organizat ion Details LastModified Time What is your exercise level? None [id number] Information not available 2022 Mental Status None recorded. Family History Relationship Description Onset Age of this Age Resolved Age Notes LastModified by Organization Details LastModified Time Father Malignant tumor of lung [id number] Not available 2022 09:13:37 Mother Malignant tumor of breast [id number] Not available 2022 09:13:37 Mother Hypertensive disorder Not available 2022 09:57:08 Medical History Condition Response ARTHRITIS Y DIABETES, TYPE Y Gynecological History Statement/Question Response Date of Last Mammogram 10/03/2022 Sexually Active? Y Dislike of Light during Menstrual Headac he N STIs/STDs N Breast Problems no Discharge no Obstetrics History GPAL:G 0 P 0 0 0 0 Immunizations Vaccine Type Date Status Note Provider Nam e and Address Organization Details Recorded Time Tdap 10/26/2022 completed James Acevedo RN null, [place] [employer] 10/26/2022 10:08:03 Past Encounters Encounter ID Performer Location Encounter Start Date Encounter Closed Date Diagnosis/Indication Diagnosis SNOMED-CT Code Diagnosis ICD10 Code Diagnosis Note [id number] [facility] Primary [facility] [address] [facility] [facility] [address] [place] [address] 09/09/2021 00:00:00 09/09/2021 09:02:20 [id number] [facility] Primary Care [facility] [address] [facility] [address] [place] [address] 11/17/2021 00:00:00 11/17/2021 14:31:51 [id number] Pee Inman MD [facility] Mot[facility] [address] [place] [address] 08/17/2022 09:38:11 08/17/2022 10:21:47 Lateral epicondylitis of right humerus [id number] 00266 M77.11 Carpal germán bryan syndrome of right wrist [id number] 84266 G56.01 Pain in right hand 79276 87501 88723 M79.641 [id number] Staecy Caldwell MD [facility] Primary Care [facility] [address] [facility] [address] [place] [address] 09/12/2022 09:01:16 09/12/2022 09:33:35 Adult health examination [id number] Z00.00 Colonoscop y done 06/03/22 repeat in 1 yearMammog sari and paps with gynLDCT ordered, smoking cessation recommende dFasting labs up to dateYearly flu vacccine and covid vaccines per cdc guidelines recommend shingles vaccine series Tobacco user [id number] Z 72.0 recommend smoking cessationh as smoked 1 ppd since age 19, will get LDCT Type 2 savita betes mellitus 14873714 E11.9 Most recent a1c 7.9, goal is 7 or lowerconti nue metformin and glipizideu p to date with eye exam and urine microalbum in (09/23)on statinbegi n mounjaro 2.5 mg sc qweek, plan to titrate up monthly as long as toleratedr eviewed potential med s/e and how to use properly [id number] Stacey Caldwell MD [facility] Primary Care [facility] [address] [facility] [address] [place] [address] 10/26/2022 09:39:35 10/26/2022 12:21:21 Type 2 diabetes mellitus 36604757 E11.9 Most recent a1c 7.9, goal is 7 or lowerconti nue metformin and glipizideu p to date with eye exam and urine microalbum in (09/23)on statinincr ease mounjaro 7.5 mg sc qweek, plan to titrate up monthly as long as toleratedf /u in 3 months or sooner if needed Active or passive immunization [id number] Z23 will be providing childcare to [facility] in February ADRIANNA Cuenca [facility] Primary Care [address] [place] [address] 03/15/2023 09:57:47 03/15/2023 12:39:38 Restless legs 70138759 G25.81 -has been an issue for years-take s gabapentin currently, 100mg tid, and 300mg at bedtime-faria s taken ropinirole in the past which worked for a while, and then-will plan to continue to take the gabapentin as she has been-addin g ropinirole 1mg [id number] Stacey Caldwell MD [address] [address] 05/10/2023 14:05:21 05/10/2023 15:27:21 Insomnia 628142301 G47.00 doing welldecrea se to 50 mg pt does not need full tab [id number] Stacey Caldwell MD [address] [place] [address] 08/08/2023 09:49:44 08/08/2023 10:31:29 Insomnia 287964987 G47.00 doing welldecrea se to 50 mg pt does not need full tab 08/08/23: doing well on gabapentin 300 mg 2 tabs po qhs Adjustment disorder with anxious mood 56071523 F43.22 stable, refill given [id number] ADRIANNA Storm [facility] Care [address] [address] 11/21/2023 09:20:32 11/21/2023 11:06:23 Menopausal symptom 61892338 N95.1 Will check labs as listed below.Cont inue taking menopause support capsules Arthritis 0524675 M19.90 Discussed with patient to stop the use of OTC NSAIDs while taking this medication . Hand wart 502770258 B07. 8 [id number] ADRIANNA Storm [facility] Primary Care [address] [place] [address] 01/01/2024 09:19:22 01/01/2024 10:38:43 Transition of care [id number] 105 Z75.8 Type 2 savita betes mellitus without complication 161969844 E11.9 Chest pain 50397057 R07. 9 went to ER on 12/06/23Fol lows up with Cardiologi st on Monday. [id number] ADRIANNA Storm [facility] Primary Care Guerrero mendoza [address] [facility] [address] [place] [address] 02/06/2024 10:56:36 02/06/2024 11:05:39 Health Concerns Section Related Observation LastModified by Organization Detai ls LastModified Time None Recorded Concern Status LastModified by Organization Details LastModified Time None Recorded Advance Directives Directive None Recorded Payers Encounter Date Sequence Insurance Name Policy Number Policy Colon Covered Member ID Colon Member ID Guarantor Name 05/10/2023 1 [place] [id number] Maria Victoria Kathleen Syd [id number] Maria Victoria Kathleen Syd 08/08/2023 1 [place] [id number] Maria Victoria Kathleen Syd [id number] Maria Victoria Kathleen Syd 11/21/2023 1 [place] [id number] Maria Victoria Kathleen Syd [id number] Maria Victoria Kathleen Syd 01/01/2024 1 [place] [id number] Maria Victoria Kathleen Syd [id number] Maria Victoria Kathleen Syd 02/06/2024 1 [place] [id number] Maria Victoria Kathleen Syd [id number] Maria Victoria Kathleen Syd Notes Date Note Type Note Provider Name and Address Organization Details Recorded Time 05/10/2023 text/html wonders if she i s menopausalno periods from ablationforgetful, harp, irritable 1/2 tab trazodone is working well Stacey Caldwell MD [address] [place] [address], [phone], [facility] [employer] 2023 18:05:34 08/08/2023 text/html wonders if she i s menopausalno periods from ablationforgetful, harp, irritable 1/2 tab trazodone is working well update: sleeping well on gabapentin 600 mg po qhs,off ropinirole and trazodone Stacey Caldwell MD [address], [place] [address], [place], [address], [facility] [employer] [facility] [employer] 08/20/2023 13:21:12 11/21/2023 text/html Patient is a 53 year old female that presents to the office ambulatory with even and steady gait to discuss menopause. Patient reports she is starting menopause due to symptoms that started 3 months ago. Patient reports feeling like she is on edge, has no patience and is instantly aggravated. Patient reports she started taking menopause support capsules and she believes they are working. Patient reports she just opened her second bottle. Patient denies hot flashes, appetite changes or significant weight changes. Patient reports her last period was about 15 years ago, patient had an ablasion. Patient reports right wrist pain due to arthritis. Patient reports pain has been ongoing for several years but it becoming more persistent. Patient reports she takes Ibuprofen and Tylenol routinely for pain because she is constantly using her hands. Patient reports she recently had carpel tunnel surgery which helped with the numbness and tingling feeling. Patient is also looking for recommendations for wart on distal aspect of right third digit. Patient reports she has tried every over the counter remedy available and it will not go away. Patient reports it has been there for years however she always forgets to mention it. Patient reports she clips it off when it gets big. Patient denies chest pain and shortness of breath, nausea vomiting and diarrhea. ADRIANNA Storm [address], [facility] [address], [place], [address], [facility] [employer] [facility] [employer] 11/21/2023 11:02:14 01/01/2024 text/html Patient is a 53 year old female that presents to the office for hospital follow up. Patient reports she went to [facility] on 12/05 for sudden onset chest pain. Patient reports she was admitted and all testing was normal. Patient follows up with Cardiology on Monday.Patient denies recurrence of chest pain since that incident but reports intermittent chest pressure. Patient reports she is doing well on Mounjaro 10mg. Patient requesting referral for keg varnisher. ADRIANNA Storm [address], [facility] [address], [place], [address], [place] [facility] 01/02/2024 10:14:03 OBGyn Episode No OBEpisode recorded.
--- OUTSIDE RECORDS SUMMARY | 2024-05-14 00:28 | XMS_ITS | Patient Health Summary ---
Author Organization [facility] [employer] Address [address] [place] [address] Care Team Providers Care Precipitator Supervisor Name Role Phone Unavailable Primary Care Provider Unavailabl e Note from [facility],non-owned Affiliates and Associated Physician Practices is amultiple site organization consisting of ambulatory clinics and hospital sitesin [place], [place], [place] and [place]. This disclosure is being madepursuant to the Care Everywhere program and may not contain all information available regarding this patient. Last updated 17.[facility] [employer] Allergies * Prednisone(Swelling) Medications * Be aware that medications may not be up to date on this document. Alwaysverify current medications with the patient. * escitalopram (LEXAPRO) 20 MG tablet escitalopram 20 mg tablet TK 1 AND 1/2 TS PO QD * gabapentin (NEURONTIN) 100 MG capsule gabapentin 100 mg capsule * metFORMIN (GLUCOPHAGE) 1000 MG tablet metformin 1,000 mg tablet * rOPINIRole (REQUIP) 0.5 MG tablet ropinirole 0.5 mg tablet * simvastatin (ZOCOR) 20 MG tablet simvastatin 20 mg tablet Social History Tobacco Use Types Packs/Day Years Used Date Smoking Tobacco: Every Day Cigarettes 1 30 Smokeless Tobacco: Never Sex and Gender Information Value Date Recorded Sex Assigned at Not on file Gender Identity Female 06/02/2019 10:26 AM FORESTRY EXTENSION SPECIALIST Sexual Orientation Not on file Last Filed Vital Signs Vital Sign Reading Time Taken Comments Blood Pressure - - Pulse 123 06/02/2019 10:06 AM FORESTRY EXTENSION SPECIALIST Temperature 37.1 C (98.7 F) 06/02/2019 10:06 AM FORESTRY EXTENSION SPECIALIST Respiratory Rate 20 06/02/2019 10:06 AM FORESTRY EXTENSION SPECIALIST Oxygen Saturation 92% 06/02/2019 10:06 AM FORESTRY EXTENSION SPECIALIST Inhaled Oxygen Concentration - - Weight 108.9 kg (240 lb) 06/02/2019 10:06 AM FORESTRY EXTENSION SPECIALIST Height 167.6 cm (5' 6 ) 06/02/2019 10:06 AM FORESTRY EXTENSION SPECIALIST Body Mass Index 38.74 06/02/2019 10:06 AM FORESTRY EXTENSION SPECIALIST Procedures * INFLUENZA A+B - POINT OF CARE (AMB)(Performed 06/02/2019) Performed for Influenza A * GROSS + MICRO EXAM(Performed 04/09/1996) Results * (ABNORMAL) INFLUENZA A+B - POINT OF CARE (AMB) (06/02/2019) Influenza A Antigen Rapid Positive(A) Negative Influenza B Antigen Rapid Negative Negative Influenza Internal Control present NEGATIVE - POSITIVE Influenza Lot Number [id number] Influenza Expiration Date 03/04/2021 Other NASOPHARYNGEAL SWAB / Unknown 06/02/2019 Socorro Susiekathie Akers BEAUTY COUNSELOR-RN IMMUNOLOGY LAB - PO INT OF CARE ORDERABLES * GROSS + MICRO EXAM (04/09/1996 12:47 PM FORESTRY EXTENSION SPECIALIST) Result CASE NUMBER [id number] Comment: ORDERING PHYSICIAN LA GALAVIZ SPECIMEN TYPE Cervix Biopsy-cone Date 04/09/1996 Physician Kevin Gross Description The specimen is received in 3 containers. The first container is labeled piece of cervix, stitch at 12 o'clock . Received is a 2.5 cm in circumference x 1.2 cm in length x 0.3 to 0.4 cm in depth. There is a suture marking at 12 o'clock. The distal external surgical margin is inked in green and the proximal external (endocervical) surgical margin is inked in black. The specimen is sectioned from 12 o'clock in a clockwise fashion and submitted in cassettes A thru D. The second container is labeled endocervical curettings . Received is approximately 0.5 mls of light yeager mucous-appearing soft tissue fragments. All is submitted in cassette E. The third container is labeled endometrial curettings . Received is approximately 1.5 mls of reddish-brown soft tissue and clot. All is submitted in cassette F. PG/lmj Microscopic Exam Histologic sections of cervical cone show focal severe dysplasia within the 9 o'clock to 12 o'clock region. Severe dysplasia extends down into the endocervical glands, however, the endocervical surgical margin is negative for dysplasia. There is no evidence of invasion. Histologic sections of the endocervical curettings are of benign endocervical fragments admixed with mucous. Histologic sections of the endometrial biopsy are of fragments of proliferative endometrium. Diagnosis I. Cervix, cold knife, cone biopsy A. High grade squamous intraepithelial lesion (severe dysplasia, MARYAM III/CIS) at 9 o'clock to 12 o'clock. B. Endocervical surgical margin negative for dysplasia. C. No invasion identified. II. Endocervix, curettage A. No pathologic diagnosis. III. Endometrium, biopsy A. Proliferative endometrium. *Snomed Code 1 [id number] - [id number] - [id number] - [id number] - [id number] - [id number] Welder/Fitter Pathologist Chang Cartwright M.D. MISCELLANEOUS SAMPLES / Unknown 04/09/1996 12:47 PM FORESTRY EXTENSION SPECIALIST 04/09/1996 12:47 PM FORESTRY EXTENSION SPECIALIST Historical Provider LAB - PATHOLOGY/C YTOLOGY ORDERABLES
--- NOTE | 2024-05-14 08:10 | WPDANESEPP ---
Anes - Eval Pre Procedure Procedure: Operation Date: 05/14/24 09:30 Proposed Procedures p Colonoscopy - Harsha Florez MD Date/Time: 05/14/24 08:10 Pre Op Diagnosis: Personal history colon polyps Patient Data Age: 53 Gender: F Height: 1.65 m Weight: 68.2 kg Allergies Allergy/AdvReac Type Severity Reaction Status Date / Time prednisone AdvReac Unknown Swelling Verified 04/29/24 13:29 Home Medications ?Medication ?Instructions ?Recorded ?Confirmed ?Type cholecalciferol (vitamin D3) 50 50 mcg PO DAILY 05/22/20 04/29/24 History mcg (2,000 unit) capsule escitalopram oxalate 20 mg tablet 30 mg PO DAILY 05/22/20 04/29/24 History (Lexapro) gabapentin 100 mg capsule 100 mg PO BID 05/22/20 04/29/24 History gabapentin 300 mg capsule 300 mg PO DAILY 05/22/20 04/29/24 History metformin 500 mg tablet 500 mg PO BID 05/22/20 04/29/24 History simvastatin 10 mg tablet 10 mg PO DAILY 05/22/20 04/29/24 History lidocaine 5 % topical patch 1 patch topical DAILY #15 ea 12/10/22 04/29/24 Rx tirzepatide 2.5 mg/0.5 mL 2.5 mg subcut WEEKLY 08/14/23 04/29/24 History subcutaneous pen injector (Mounjaro) diphenhydramine HCl 25 mg capsule 25 mg PO TID PRN nausea and 09/07/23 04/29/24 Rx vomiting #20 caps scopolamine base 1 mg over 3 days 1 patch transdermal Q3D PRN nausea 09/07/23 04/29/24 Rx transdermal patch and vomiting #4 ea meloxicam 15 mg tablet 15 mg PO .qday 04/29/24 04/29/24 History simvastatin 80 mg tablet 80 mg PO QPM 04/29/24 04/29/24 History tirzepatide 7.5 mg/0.5 mL 7.5 mg subcut WEEKLY 04/29/24 04/29/24 History subcutaneous pen injector (Mounjaro) Patient hx anesthesia problems: none Family hx anesthesia problems: none Results Review: All pre-operative results and documents have been reviewed as part of the pre-operative evaluation. COUNT INCLUDES THE [facility] Past Medical History Medical History Smoker Diverticulosis Hyperlipidemia Type II diabetes mellitus Restless leg syndrome Surgical History Surgical History History of colonoscopy 06/03/22 History of endometrial ablation History of cholecystectomy History of tonsillectomy History of section x 2 Family History Family History Mother Hypertension Family history of malignant neoplasm of breast in first degree relative Social History Social History Years smoked: 20 Smoking status: Current every day smoker Tobacco type: cigarettes Second hand tobacco smoke exposure: No Alcohol intake: never Substance use: never Lack of Transportation: No Lack of Food: Never True Current Housing: I Have Housing Concerned About Future Housing: No Difficulty Paying Gas/Electric Bills: No Difficulty Paying for Meds: No Currently Unemployed: No Education: Trade/Vocational Certificate Difficulty w/ Childcare or Family Care: No Living arrangements: with family Additional living arrangements comments: with and daughter Occupation/Education: occupation Gender identity (if verbalized by the patient): Female Sexual Orientation (if Verbalized by the Patient): Straight or Heterosexual Spiritual care concerns: No Exam Day of Procedure 05/14/24 08:10 SR 09/24 Patient weight: normal
[2024-05-14 08:24] VITALS: BP 116/84; PULSE 91; RESP 18; TEMP 36.1; O2SAT 98
[2024-05-14] MEDS: LACTATED RINGERS 1,000 ML 150 ML IV CONT (08:36)
[2024-05-14 08:37] LABS: Glucose Point of Care 106 mg/dl (65-105)
--- NOTE | 2024-05-14 08:49 | PM.HPGS ---
History of Present Illness History of Present Illness Consent: Risks, benefits, and alternatives have been discussed and questions answered. Patient agrees to proceed with procedure. Chief complaint: Personal history colon polyps Narrative: Maria Victoria Velarde is a 53 year old female with TA polyps in 2022 Review of Systems Review of Systems: All systems reviewed & are unremarkable except as noted in HPI and below PMFSH Past Medical History Medical History (Updated 05/14/24 @ 08:51 by Harsha Florez MD) Adenomatous colon polyp Smoker Diverticulosis Hyperlipidemia Type II diabetes mellitus Restless leg syndrome Surgical History Surgical History History of colonoscopy 06/03/22 History of endometrial ablation History of cholecystectomy History of tonsillectomy History of section x 2 Family History Family History Mother Hypertension Family history of malignant neoplasm of breast in first degree relative Social History Social History Years smoked: 20 Smoking status: Current every day smoker Tobacco type: cigarettes Second hand tobacco smoke exposure: No Alcohol intake: never Substance use: never Lack of Transportation: No Lack of Food: Never True Current Housing: I Have Housing Concerned About Future Housing: No Difficulty Paying Gas/Electric Bills: No Difficulty Paying for Meds: No Currently Unemployed: No Education: Trade/Vocational Certificate Difficulty w/ Childcare or Family Care: No Living arrangements: with family Additional living arrangements comments: with and daughter Occupation/Education: occupation Gender identity (if verbalized by the patient): Female Sexual Orientation (if Verbalized by the Patient): Straight or Heterosexual Spiritual care concerns: No Meds Home Medications and Allergies Home Medications ?Medication ?Instructions ?Recorded ?Confirmed ?Type cholecalciferol (vitamin D3) 50 50 mcg PO DAILY 05/22/20 04/29/24 History mcg (2,000 unit) capsule escitalopram oxalate 20 mg tablet 30 mg PO DAILY 05/22/20 04/29/24 History (Lexapro) gabapentin 100 mg capsule 100 mg PO BID 05/22/20 04/29/24 History gabapentin 300 mg capsule 300 mg PO DAILY 05/22/20 04/29/24 History metformin 500 mg tablet 500 mg PO BID 05/22/20 04/29/24 History simvastatin 10 mg tablet 10 mg PO DAILY 05/22/20 04/29/24 History lidocaine 5 % topical patch 1 patch topical DAILY #15 ea 12/10/22 04/29/24 Rx tirzepatide 2.5 mg/0.5 mL 2.5 mg subcut WEEKLY 08/14/23 05/14/24 History subcutaneous pen injector (Mounjaro) diphenhydramine HCl 25 mg capsule 25 mg PO TID PRN nausea and 09/07/23 04/29/24 Rx vomiting #20 caps scopolamine base 1 mg over 3 days 1 patch transdermal Q3D PRN nausea 09/07/23 04/29/24 Rx transdermal patch and vomiting #4 ea meloxicam 15 mg tablet 15 mg PO .qday 04/29/24 04/29/24 History simvastatin 80 mg tablet 80 mg PO QPM 04/29/24 04/29/24 History tirzepatide 7.5 mg/0.5 mL 7.5 mg subcut WEEKLY 04/29/24 05/14/24 History subcutaneous pen injector (Mounjaro) Allergies Allergy/AdvReac Type Severity Reaction Status Date / Time prednisone AdvReac Unknown Swelling Verified 05/14/24 08:23 Vital Signs Vital Signs - 24 hr 05/14/24 08:24 Temperature 97 F L Pulse Rate 91 Respiratory Rate 18 Blood Pressure 116/84 Pulse Oximetry 98 Oxygen Delivery Room Air Exam Const: General: comfortable and no acute distress HENMT: Face/Nose/Sinus: Normal nares present Eyes: General: appearance normal, both eyes and all related structures Neck: Neck: no JVD Resp: Auscultation: clear to auscultation bilaterally Cardio: Rate: regular rate Rhythm: regular rhythm GI: Inspection: non-distended GI Palp: Yes Soft to palpation Skin: General skin exam: normal color Neuro: General: gait normal Speech: normal speech Extrem: General: normal to inspection Psych: Mental Status: mental status grossly normal Assessment and Plan Assessment and plan (1) Adenomatous colon polyp: Code(s): D12.6 - Benign neoplasm of colon, unspecified Status: Acute Assessment and Plan: colonoscopy
[2024-05-14 09:15] VITALS: BP 83/54; PULSE 89; RESP 24; O2SAT 93
[2024-05-14 09:25] VITALS: BP 86/56; PULSE 95; RESP 26; O2SAT 99
[2024-05-14 09:35] VITALS: BP 100/67; PULSE 84; RESP 20; O2SAT 100
== END 2024-05-14 09:45 | disposition home or self-care (01) ==
PROVIDERS: PCP Nurse Practitioner Family; Referring Provider Internal Medicine Gastroenterology; Visit Provider Internal Medicine Gastroenterology
PROC: 0DJD8ZZ Inspection of Lower Intestinal Tract, Via Natural or Artificial Opening Endoscopic (ICD-10-PCS; CPT 45378; principal; 2024-05-14 09:30)
DX: Z09 Encounter for follow-up examination after completed treatment for conditions other than malignant neoplasm (principal); D12.0 Benign neoplasm of cecum; K64.4 Residual hemorrhoidal skin tags; E78.5 Hyperlipidemia, unspecified; E11.9 Type 2 diabetes mellitus without complications; G25.81 Restless legs syndrome; F17.210 Nicotine dependence, cigarettes, uncomplicated; Z79.84 Long term (current) use of oral hypoglycemic drugs; Z79.85 Long-term (current) use of injectable non-insulin antidiabetic drugs; Z98.890 Other specified postprocedural states; Z98.891 History of uterine scar from previous surgery; Z90.49 Acquired absence of other specified parts of digestive tract; Z87.19 Personal history of other diseases of the digestive system; Z80.3 Family history of malignant neoplasm of breast
CPT/HCPCS: 45385; 82948; 88305; J2003; J2704; J7120

== ENCOUNTER 2024-09-09 07:41 | Outpatient (CLI) | payer BC, SELFPAY ==
--- NOTE | ~2024-09-09 | CT_ITS ---
CT Scan of the Chest without Contrast: Clinical Indication: Lung cancer screening, nicotine dependence Technique: Contiguous sections were acquired throughout the chest without intravenous contrast. Dose reduction technique was used on this scan by utilizing automated exposure control and iterative recon struction technique. The dose-length product (DLP) was 61.50 mGy-cm. Findings: There is no evidence of any significant mediastinal, hilar or axillary lymphadenopathy. Extensive cor onary artery calcifications are present. There is no evidence of pleural or pericardial effusion. The lungs are clear. No pulmonary nodules or infiltrates are noted. Images through the upper abdomen reveal no abnormalities. Impression: Lung RADS 1: Negative. 12 month follow-up screening CT advised. Reviewed, dictated and finalized at location . Impression: Lung RADS 1: Negative. 12 month follow-up screening CT advised.
--- OUTSIDE RECORDS SUMMARY | 2024-09-09 07:48 | XMS_ITS | Clinical Summary ---
Author Organization [facility] Address [address] [place] [address] Care Team Providers Care Sales Representative [employer] Name Role Phone Carleen Jones APRN-MALTED MILK MASHER Primary Care Provider + Source Comments [facility],non-owned Affiliates and Associated Physician Practices is amultiple site organization consisting of ambulatory clinics and hospital sitesin [place], [place], [place] and [place]. This disclosure is being madepursuant to the Care Everywhere program and may not contain all information available regarding this patient. Last updated 17.[facility] Allergies Active Allergy Reactions Criticality Noted Date Comments Prednisone Swelling 06/02/2019 Medications * Be aware that medications may not be up to date on this document. Alwaysverify current medications with the patient. escitalopram (LEXAPRO) 20 MG tablet escitalopram 20 mg tablet TK 1 AND 04/04 TS PO QD Active gabapentin (NEURONTIN) 100 MG capsule gabapentin 100 mg capsule Active metFORMIN (GLUCOPHAGE) 1000 MG tablet metformin 1,000 mg tablet Active rOPINIRole (REQUIP) 0.5 MG tablet ropinirole 0.5 mg tablet Active simvastatin (ZOCOR) 20 MG tablet simvastatin 20 mg tablet Active aspirin EC (Ecotrin) 81 MG tablet Take 1 (one) tablet by mouth once daily 4 01/05/20 25 Active Cholecalciferol 125 MCG (5000 UT) once daily Active Banophen 25 MG capsule TAKE 1 CAPSULE BY MOUTH THREE TIMES DAILY NEEDED FOR NAUSEA AND VOMITING 4 Active meloxicam (Mobic) 15 MG tablet Take 1 (one) tablet by mouth once daily 4 Active nicotine (Nicoderm CQ) 14 MG/24HR patch 4 Active fish oil/omega-3 fatty acids (Promega;Cardi- [place] 3) 1000 MG capsule Take 2,400 mg by mouth once daily Active Tirzepatide (Mounjaro) 10 MG/0.5ML SOPN ADMINISTER 10 MG UNDER THE SKIN EVERY WEEK 4 Active traZODone (Desyrel) 50 MG tablet Take 1 (one) tablet by mouth once daily 5 Active Active Problems No known active problems Encounters Date Type Department Care Team Description 06/24/2024 11:30 AM CDT Office Visit [facility] - Orthopedic Surgery [address] [place] [phone] Clive Rice, RESIDENTIAL PROGRAM WORKER-MALTED MILK MASHER Primary osteoarthritis of right knee (Primary Dx) 06/24/2024 Travel 06/24/2024 Orders Only [facility] - Orthopedic Surgery [address] [place] [phone] Clive Rice, RESIDENTIAL PROGRAM WORKER-MALTED MILK MASHER Chronic pain of right knee from Last 3 Months Social History Tobacco Use Types Packs/Day Years Used Date Smoking Tobacco: Every Day Cigarettes 1 30 Smokeless Tobacco: Never PHQ-2 Answer Date Recorded Patient Health Questionnaire-2 Score 2 06/24/2024 Comments No Sex and Gender Information Value Date Recorded Sex Assigned at Not on file Legal Sex 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 Gender Identity Female 06/02/2019 10:26 AM 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 BRACE 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 Sexual Orientation Not on file Last Filed Vital Signs Vital Sign Reading Time Taken Comments Blood Pressure - - Pulse 123 06/02/2019 10:06 AM CORNER BRACE BLOCK 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 Temperature 37.1 C (98.7 F) 06/02/2019 10:06 AM CORNER BRACE BLOCK 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 Respiratory Rate 20 06/02/2019 10:06 AM CORNER BRACE BLOCK 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 Oxygen Saturation 92% 06/02/2019 10:06 AM CORNER BRACE BLOCK 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 Inhaled Oxygen Concentration - - Weight 68 kg (150 lb) 06/24/2024 11:05 AM CDT Height 165.1 cm (5' 5) 06/24/2024 11:05 AM CDT Body Mass Index 24.96 06/24/2024 11:05 AM CDT Plan of Treatment Upcoming Encounters Date Type Department Care Team (Late st Contact Info) Description 09/30/2024 10:15 AM CDT Office Visit [facility] - Orthopedic Surgery [address] [place] [address] Clive Rice, RESIDENTIAL PROGRAM WORKER-MALTED MILK MASHER [address] [place] [address] Health Maintenance Due Date Last Done Comments [...] 50+ (1 of 2 - PCV) 05/31/1990 LUNG CANCER SCREENING 05/31/2021 ZOSTER VACCINE (1 of 2) 05/31/2021 COVID-19 VACCINE (1 - 2023-2 5 season) 2023 INFLUENZA VACCINE (Season Ended) 2024 DEPRESSION SCREENING Completed 06/24/2024 HIB VACCINE Aged Out No longer eligi ble based on patient's age to complete this topic HPV VACCINE Aged Out No longer eligi ble based on patient's age to complete this topic MENINGOCOCCAL (Group B) VACC INE SHARED DECISION-MAKING Aged Out No longer eligibl e based on patient's age to complete this topic MENINGOCOCCAL GROUPS A/C/Y/W VACCINE Aged Out No longer eligible b ased on patient's age to complete this topic Procedures Procedure Name Priority Date/Time Associated Diagnosis Comments RI DRAIN/INJECT LARGE JOINT/BURSA Routine 06/24/2024 12:15 PM CDT Primary osteoarthritis of right knee from Last 3 Months Results * RI DRAIN/INJECT LARGE JOINT/BURSA (06/24/2024 12:15 PM CDT) Narrative Yovany Hassan, DO - 06/24/2024 12:15 PM CDT Clive Rice APRN-CNP 06/24/2024 12:16 PM After risks, benefits, alternatives were discussed, the patient elected to proceed forward with corticosteroid injection. The appropriate site and side was confirmed with the patient. The patient was positioned in the appropriate position. The right knee injection site was located and marked at the peripatellar portal. The surrounding skin was prepped with betadine and alcohol. Ethyl Chloride was used to anesthetize the skin. A syringe with 3mL's of 1% Lidocaine was used to inject the subcutaneous tissue down into the joint space. Upon entering the joint space 0 mL's of synovial fluid was aspirated. A second syringe with a combination of 5mL's of 1% Lidocaine + 2mL's of 40mg Kenalog was injected into the joint space. A sterile bandage was placed. The patient tolerated the procedure well without complications. Post-injection instructions were given to the patient. Clive CASTLE PROCEDURE/MINOR SURGICAL ORDERABLES Final Result from Last 3 Months Insurance HECTOR Care Teams Sales Representative Girls' Apparel Relationship Specialty Start Date End Date Carleen Jones APRN-CNP [address] [place] [id number] PCP - General Nurse Practitioner Family 06/24/24
--- OUTSIDE RECORDS SUMMARY | 2024-09-09 07:48 | XMS_ITS | Clinical Summary ---
Author Organization [facility] [address] Address [address] [place] [phone] Care Team Providers Care Pigment Mixer Name Role Phone Stacey Caldwell MD Unavailable [phone] Stacey Phillip DO Unavailable Richard Sykes NP Primary Care Provider [phone] Allergies Active Allergy Reactions Criticality Noted Date [...] mouth daily 30 tablet 11 4 01/05/20 Active nicotine 21-14-7 mg/24 hr patch, TD daily, sequentialIndic ations:Tobacco abuse counseling Place 21 mg on the skin daily AND 14 mg daily AND 7 mg daily. 14 patch Active Active Problems Problem Noted Date Diagnosed Date Tobacco abuse counseling 01/05/2024 Hyperlipidemia associated with type 2 diabetes m ellitus 01/05/2024 Coronary artery calcification 01/05/2024 Other chest pain 12/07/2023 Encounters Date Type Department Care Team Description 06/21/2024 8:20 AM CDT Ancillary Procedure [facility] Imaging at [address] [phone] Acute pain of right knee 06/21/2024 8:00 AM CDT Office Visit [facility] at [address] [phone] Mary Arshad NP Acute pain of right knee (Primary Dx) 06/21/2024 Results Follow-Up [facility] Medical [facility] at [address] [phone] Mary Arshad NP XR Knee Right 3 Vw from Last 3 Months Social History Tobacco Use Types Packs/Day Years Used Date Smoking Tobacco: Every Day Cigarettes Tobacco Cessation:Ready to Q uit: Not Asked; Counseling Given: Not Answered [facility] [employer] Answer Date Recorded In the past 12 months has [employer], gas, oil, or water I Move You threatened to shut off services in your [...] often do you attend chur ch or restoration services? Never 12/07/2023 Do you belong to any clubs o r organizations such as cheondoism groups, unions, fraternal or athletic groups, or [...] any time in the past 12 m [facility], were you homeless or living in a detention (including now)? No 12/07/2023 Personal Safety Answer Date Recorded Have you ever been in or are you currently in a harmful physical or emotional relationship or is someone making you feel afraid or unsafe? 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 Gender Identity Not on file Sexual Orientation Not on file Obstetrics History Last Filed Vital Signs Vital Sign Reading Time Taken Comments Blood Pressure 132/68 06/21/2024 8:08 AM CDT Pulse 78 06/21/2024 8:08 AM CDT Temperature 36.4 C (97.6 F) 06/21/2024 8:08 AM CDT Respiratory Rate 22 06/21/2024 8:08 AM CDT Oxygen Saturation 99% 06/21/2024 8:08 AM CDT Inhaled Oxygen Concentration - - Weight 69.4 kg (153 lb) 06/21/2024 8:08 AM CDT Height 165.1 cm (5' 5) 01/05/2024 10:27 AM CDT Body Mass Index 25.46 01/05/2024 10:27 AM CDT Plan of Treatment Health Maintenance Due Date Last Done Comments Albumin Creatinine Ratio, Urine 1971 Breast Cancer Screening-Mammogram 1971 Cervical Cancer Screening 1971 Colon Cancer Screening-Colonoscopy 1971 Depression Screening 1971 Hepatitis C Screening 1971 Dilated Eye Exam 1971 Foot Exam 1971 Hepatitis B Screening 05/31/1989 Regular Well Visit/Exam 18-64 05/31/1989 Pneumococcal vaccine <65 (1 of 2 - PCV) 05/31/1990 Zoster Vaccine (1 of 2) 05/31/2021 Covid-19 Vaccine (3 - season) 2023, 07/11/2020 Hemoglobin A1C 06/05/2024 12/07/2023 Influenza Vaccine (Season Ended) 2024 Lipid Panel 12/06/2024 12/07/2023 eGFR 12/06/2024 12/07/2023, 12/06/2023 DTaP/Tdap/Td Vaccine (2 - Td or Tdap) 10/26/2032 Procedures Procedure Name Priority Date/Time Associated Diagnosis Comments XR KNEE RIGHT 3 VIEWS Schedule DEION, Read DEION (Appt Today, Awaiting Results) 06/21/2024 8:25 AM CDT Acute pain of right knee EGFR Routine 12/07/2023 4:35 AM CDT HEMOGLOBIN A1C Routine 12/07/2023 4:35 AM CDT LIPID PANEL Routine 12/07/2023 4:35 AM CDT from Last 3 Months or Most Recently Relevant to Health Maintenance Results * XR Knee Right 3 Vw (06/21/2024 8:25 AM CDT) Anatomical Region Laterality Modality Lower Extremities, Knee Right Digital Radiography 06/21/2024 10:2 6 AM CDT Narrative 06/21/2024 10:32 AM CDT EXAM DESCRIPTION: XR KNEE RIGHT 3 VIEWS REASON FOR STUDY: Right lateral knee pain for 1 month. Progressively worsening. No reported injury. TECHNIQUE: 3 weight-bearing views of the right knee COMPARISON: None FINDINGS: BONES/JOINTS: No acute fracture or dislocation. Moderate medial and lateral compartment and severe patellofemoral compartment osteoarthritis. SOFT TISSUES: No large knee joint effusion. IMPRESSION: No acute osseous abnormality. Moderate medial and lateral compartment and severe patellofemoral compartment osteoarthritis. THIS IS AN ELECTRONICALLY VERIFIED FINAL REPORT 06/21/2024 10:32 AM - Electronically signed by Abundio Rogel M.D. LB T: Report ID: [id number] Reading Location: [id number] Procedure Note Abundio Rogel MD - 06/21/2024 EXAM DESCRIPTION: XR KNEE RIGHT 3 VIEWS REASON FOR STUDY: Right lateral knee pain for 1 month. Progressively worsening. No reported injury. TECHNIQUE: 3 weight-bearing views of the right knee COMPARISON: None FINDINGS: BONES/JOINTS: No acute fracture or dislocation. Moderatemedial and lateral compartment and severe patellofemoral compartmentosteoarthritis. SOFT TISSUES: No large knee joint effusion. IMPRESSION: No acute osseous abnormality. Moderate medial and lateral compartment and severe patellofemoralcompartment osteoarthritis. THIS IS AN ELECTRONICALLY VERIFIED FINAL REPORT 06/21/2024 10:32 AM - Electronically signed by Abundio Rogel M.D. LB T: Report ID: [id number] Reading Location: [id number] Mary Arshad PATIENT REPRESENTATIVE IMG XR PROCEDURES Final Result * eGFR (12/07/2023 4:35 AM CDT) eGFR [...] ORDERABLES Final R esult Performing Organization Address City/[facility] Co de Phone Number AMANDA ALDANA [id number] [place] [address] * (ABNORMAL) Hemoglobin A1c (12/07/2023 4:35 AM CDT) Hgb A1C 5.7(H) 4.0 - 5.6 % Estimated Average Glucose 117 mg/dL AMANDA ALDANA Comment: The ADA recommends reporting an estimated Average Glucose (eAG) with all Hemoglobin A1c results using the equation derived from a study of 507 normal and diabetic adults. Minority populations were underrepresented and children were not included. (Diabetes Care 31:4953-2222, 2008). The eAG is not equivalent to a fasting glucose. Blood 12/07/2023 4:35 AM CDT 12/07/2023 4:46 AM CDT Evelyn Negron NP LAB BLOOD ORDERABLES Final R esult Performing Organization Address City/[facility]/ZIP Co de Phone Number AMANDA ALDANA [phone] Department [place] [address] * (ABNORMAL) Lipid panel (12/07/2023 4:35 AM [...] NCEP Expert Panel. Circulation 2004;110:227 3. Franklin M et al. LILI Cardiol. 2020 August 01;5(5):540-548. [...] BLOOD ORDERABLES Final R esult AMANDA ALDANA [address] Department [place] [address] from Last 3 Months or Most Recently Relevant to Health Maintenance Insurance [place] Advance Directives For more information, please contact: [phone] * Full Code (Latest Code Status on File) Date Activated Date Inactivated Comments 12/07/2023 1:20 AM 12/07/2023 9:46 PM * Full Code Date Activated Date Inactivated Comments 12/07/2023 1:08 AM 12/07/2023 1:20 AM Healthcare Agents on File Name Relationship Healthcare Agent Relationsks p Communication Juan Velarde Spouse Health Care Agent Care Teams Pigment Mixer Relationship Specialty Start Date End Date Richard Sykes PATIENT REPRESENTATIVE [address] [place] [address] PCP - General Family Medicine 06/21/24 Stacey Caldwell MD [address] [place] [address] Family Medicine 06/20/24 Stacey Phillip DO [address] [facility] [address] [address] Consulting Physician Cardiology 12/07/23
--- OUTSIDE RECORDS SUMMARY | 2024-09-09 07:48 | XMS_ITS | Data Portability ---
Author Organization [place] [facility] [employer], Main Office Address [address] [place] [address] Care Team Providers Care Shank Burnisher Name Role Phone CHARY VELASCO Repair Service Dispatcher Unavailable Assessment Encounter Date Assessment Date Assessment LastModified by Organization Details LastModified Time 01/01/2024 01/01/2024 I have reconciled the patient's medications post their discharge from inpatient facility. [id number] Not available 01/01/2024 09:29:54 Plan of Treatment Reminders Order Date Submit Date Provider Last Modified By Organization Details Last Modified Time Details Appointments None recorded. Lab vitamin D, 25-hydroxy , total, serum 2024 025 [facility], [address], [place], [address], 5 07:14:06 TSH, serum or plasma 2024 025 [facility], [address], [place], [address], 5 07:14:07 HbA1c (hemoglobi n A1c), blood 2024 025 [facility], [address], [place], [address], 5 07:14:08 CBC w/ auto diff 2024 025 [facility], [address], [place], [address], 5 07:14:05 lipid panel, serum 2024 025 [facility], [address], [place], [address], 5 07:14:02 CMP, serum or plasma [address] [facility], [address] [facility], [place], [address], 5 07:14:03 FSH (follicle- stimulatin g hormone), serum 2023 024 [id number] [facility], [address], [place], [address], 4 08:45:34 lh (luteinizi ng hormone), serum 2023 024 [email or web address] [facility], [address] [facility] [address], [place], [address], 4 08:45:35 estrone (E1), free, serum 2023 024 [email or web address] [facility], [address] [facility], [place], [address], 4 08:45:35 progestero ne, serum 2023 024 [facility], [address] [address] [facility], [place], [address], 4 08:45:35 prolactin, serum 2023 024 [facility], [address] [facility] [address], [place], [address], 4 08:45:35 testostero ne, total, serum 2023 024 [email or web address] [facility], [address], [place], [address], 4 08:45:35 Referral ophthalmol ogist referral - Please call patient to schedule an appointmen t. Thank you. 2023 024 [facility], [address], [place], [address], 4 07:34:08 Procedures cryosurger y (PROC) - Right hand, third digit *Please call pt to schedule* 2023 024 [facility], [address] [facility] , [place], [address], 5 11:26:09 Surgeries None recorded. Imaging LDCT, chest, for lung cancer screening - Please call patient to schedule. [address] [facility], [address], [place], [address], 5 17:10:26 Medication Orders meloxicam 7.5 mg tablet 2023 024 [id number], [address], [place], [place], [id number], 5 09:30:29 escitalopr am 20 mg tablet 2023 024 [id number], [address], [place], [place], [id number], 4 10:30:43 Patient TargetsNo targets recorded. Patient Instructions Encounter Date Encounter Id Patient Instructions Last Modified By Organization Details Last Modified Time 01/01/2024 [id number] Thank you for your visit to our [...] at home, please call us to discuss. [email or web address] Not available 01/01/2024 09:29:54 Homebound Status : Required Home Health Services: Durable Medical Equipment needed: Billing Guidelines CPT code 70647- Transitional Care Management services with moderate medical decision complexity (ikmt-jn-tzae visit within 14 days of discharge). CPT code 30794- Transitional Care Management services with high medical decision complexity (lipp-iq-txsk visit within 7 days of discharge). [email or web address] Not available 01/01/2024 09:29:54 Reason for Referral Basic Acoustic Analyst Referral for Type 2 diabetes mellitus without [...] or = 188 pg/mL This test was chely kelley and its ricky tical perfo rmanc e gary cteri stics have been deter mined by [facility]. It has not been clear ed or appro yenifer by FDA. This assay has been valid ated pursu ant to the CLIA regul ation s and is used for clini marcell purpo ses. Not Available [employer] [facility] [address], [place], [address], 11/28/2023 23:19:08 11/22/19 24 11/28/2023 FSH FSH 92.7 mIU/m L normal Refer ence Range Folli cular Phase 2.5-1 0.2 Mid-c ycle Peak 3.1-1 7.7 Lutea l Phase 1.5- 9.1 Postm enopa usal 23.0- 116.3 Not Available [facility] [address] [place], [address], 11/28/2023 23:19:09 11/22/19 24 11/28/2023 LH LH 35.9 mIU/m L normal Refer ence Range Folli cular Phase 1.9-1 2.5 Mid-C ycle Peak 8.7-7 6.3 Lutea l Phase 0.5-1 6.9 Postm enopa usal 10.0- 54.7 Not Available [facility] [address] [address] [place], [address], 11/28/2023 23:19:09 11/22/19 24 11/28/2023 PROLA CTIN prolactin 8.5 NG/mL normal Refer ence Range Femal es Non-p regna nt 3.0-3 0.0 Pregn ant 10.0- 209.0 Postm enopa usal 2.0-2 0.0 Not Available [facility] [address] [place] [address], [address], 11/28/2023 23:19:09 11/22/19 24 11/28/2023 PROGE STERO NE progesterone <0.5 NG/mL normal Refer ence Range s Femal e Folli cular Phase < 1.0 Lutea l Phase 2.6-2 1.5 Post menop ausal < 0.5 Pregn aiyana 1st Trime ster 4.1-3 4.0 2nd Trime ster 24.0- 76.0 3rd Trime ster 52.0- 302.0 Not Available [facility] [address] [place], [address], 11/28/2023 23:19:10 11/22/19 24 11/28/2023 TESTO STERO NE, TOTAL , MS testosterone , total, MS 24 NG/dL 2-45 For addit ional infor molly forman e refer to https ://ed ucati on.qu jose manuel walterNine Iron Innovationss. com/f aq/To Joycelyn smith LCMSM S (This link is being provi ded for infor kathleen nal/e ducat ional purpo ses only. ) (Note ) This test was devel oped and its ricky tical perfo rmanc e gary cteri stics have been deter mined by [employer]. It has not been clear ed or appro yenifer by the FDA. This assay has been valid ated pursu ant to the CLIA regul ation s and is used for clini marcell purpo ses. MDF med fusio n [address] [facility] [address] [facility] [address] [phone] Cindy Bennett MD, PhD Not Available [address] [address] [place], [address], 11/28/2023 23:19:10 07/10/19 25 07/10/2024 LIPID PANEL , STAND COYD cholesterol, total 157 mg/dL <200 normal Not Available [facility] [address] [address] [place], [address], 07/10/2024 07:14:02 07/10/1907/10/2024 LIPID PANEL , STAND CODY HDL cholesterol 67 mg/dL > or = 50 normal Not Available [facility] [address] [address] [place], [address], 07/10/2024 07:14:02 07/10/1907/10/2024 LIPID PANEL , STAND CODY triglyceride s 72 mg/dL <150 normal Not Available [facility] [address] [address] [place], [address], 07/10/2024 07:14:02 07/10/1907/10/2024 LIPID PANEL , STAND CODY LDL-choleste rol 75 mg/dL _(marcell c) normal Refer ence range : <100 Khadijah able range <100 mg/dL for prima ry preve ntion ; <70 mg/dL for patie nts with CHD or diabe tic patie nts with > or = 2 CHD risk facto rs. LDL-C is now calcu lated using the Angelica n-[facility] kins sylvia mccauley n, which is a valid ated novel metho d joshuai tyson jeromy r accur acy than the Fried zana equat ion in the estim ation of LDL-C . Angelica araujo SS et al. LILI. 2013; 310(1 9): 2061- 2068 (http ://ed ucati on.Qu estDi Achieve Xs. com/f aq/FA Q164) Not Available [address], [address], 07/10/2024 07:14:02 07/10/1907/10/2024 LIPID PANEL , STAND CODY chol/HDLC ratio 2.3 (calc ) <5.0 normal Not Available [address], [address], 07/10/2024 07:14:02 07/10/1907/10/2024 LIPID PANEL , STAND CODY non HDL cholesterol 90 mg/dL _(marcell c) <130 normal For patie nts with diabe humberto plus 1 major ASCVD risk facto r, treat ing to a non-H DL-C goal of <100 mg/dL (LDL- C of <70 mg/dL ) is consi claudiod a rhett tariqo n. Not Available [address] [address] [place], [address], 07/10/2024 07:14:02 07/10/1907/10/2024 COMPR EHENS KAREN METAB OLIC PANEL glucose 98 mg/dL 65-99 normal Fasti ng refer ence inter jessica Not Available [facility] [address] [address] [place], [address], 07/10/2024 07:14:03 07/10/19 25 07/10/2024 COMPR EHENS KAREN METAB OLIC PANEL urea nitrogen (BUN) 11 mg/dL 7-25 normal Not Available [address] [place], [address], 07/10/2024 07:14:03 07/10/19 25 07/10/2024 COMPR EHENS KAREN METAB OLIC PANEL creatinine 0.67 mg/dL 0.50-1 .03 normal Not Available [address], [address], 07/10/2024 07:14:03 07/10/19 25 07/10/2024 COMPR EHENS KAREN METAB OLIC PANEL eGFR 104 mL/mi n/1.7 3m2 > or = 60 normal Not Available [address], [address], 07/10/2024 07:14:03 07/10/1907/10/2024 COMPR EHENS KAREN METAB OLIC PANEL BUN/creatini ne ratio SEE NOTE: (calc ) 6-22 Not Repor [place]: BUN and Creat inine are withi n refer ence range . Not Available [address], [address], 07/10/2024 07:14:03 07/10/19 25 07/10/2024 COMPR EHENS KAREN METAB OLIC PANEL sodium 137 mmol/ L 135-14 6 normal Not Available [address], [address], 07/10/2024 07:14:03 07/10/1907/10/2024 COMPR EHENS KAREN METAB OLIC PANEL potassium 4.4 mmol/ L 3.5-5. 3 normal Not Available [address], [address], 07/10/2024 07:14:03 07/10/19 25 07/10/2024 COMPR EHENS KAREN METAB OLIC PANEL chloride 102 mmol/ L 98-110 normal Not Available [address], [address], 07/10/2024 07:14:03 07/10/19 25 07/10/2024 COMPR EHENS KAREN METAB OLIC PANEL carbon dioxide 27 mmol/ L 20-32 normal Not Available [address], [address], 07/10/2024 07:14:03 07/10/19 25 07/10/2024 COMPR EHENS KAREN METAB OLIC PANEL calcium 9.8 mg/dL 8.6-10 .4 normal Not Available [address], [address], 07/10/2024 07:14:03 07/10/19 25 07/10/2024 COMPR EHENS KAREN METAB OLIC PANEL protein, total 7.2 g/dL 6.1-8. 1 normal Not Available [address], [address], 07/10/2024 07:14:03 07/10/19 25 07/10/2024 COMPR EHENS KAREN METAB OLIC PANEL albumin 4.9 g/dL 3.6-5. 1 normal Not Available [address], [address], 07/10/2024 07:14:03 07/10/19 25 07/10/2024 COMPR EHENS KAREN METAB OLIC PANEL globulin 2.3 g/dL_ (calc ) 1.9-3. 7 normal Not Available [address], [address], 07/10/2024 07:14:03 07/10/19 25 07/10/2024 COMPR EHENS KAREN METAB OLIC PANEL albumin/glob ulin ratio 2.1 (calc ) 1.0-2. 5 normal Not Available [address], [address], 07/10/2024 07:14:03 07/10/19 25 07/10/2024 COMPR EHENS KAREN METAB OLIC PANEL bilirubin, total 0.6 mg/dL 0.2-1. 2 normal Not Available [address], [address], 07/10/2024 07:14:03 07/10/19 25 07/10/2024 COMPR EHENS KAREN METAB OLIC PANEL alkaline phosphatase 61 U/L 37-153 normal Not Available [facility] [employer] [address], [address], 07/10/2024 07:14:03 07/10/19 25 07/10/2024 COMPR EHENS KAREN METAB OLIC PANEL AST 19 U/L 10-35 normal Not Available [address], [address], 07/10/2024 07:14:03 07/10/19 25 07/10/2024 COMPR EHENS KAREN METAB OLIC PANEL ALT 19 U/L 6-29 normal Not Available [address], [address], 07/10/2024 07:14:03 07/10/19 25 07/10/2024 CBC (INCL UDES DIFF/ PLT) white blood cell count 10.0 thous and/u L 3.8-10 .8 normal Not Available [address], [address], 07/10/2024 07:14:04 07/10/19 25 07/10/2024 CBC (INCL UDES DIFF/ PLT) red blood cell count 4.42 kathleen on/uL 3.80-5 .10 normal Not Available [address], [address], 07/10/2024 07:14:04 07/10/19 25 07/10/2024 CBC (INCL UDES DIFF/ PLT) hemoglobin 15.1 g/dL 11.7-1 5.5 normal Not Available [facility] [address], [address], 07/10/2024 07:14:04 07/10/1907/10/2024 CBC (INCL UDES DIFF/ PLT) hematocrit 44.4 % 35.0-4 5.0 normal Not Available [facility] [address], [address], 07/10/2024 07:14:04 07/10/1907/10/2024 CBC (INCL UDES DIFF/ PLT) MCV 100.5 fL 80.0-1 00.0 high Not Available [facility] [address], [address], 07/10/2024 07:14:04 07/10/1907/10/2024 CBC (INCL UDES DIFF/ PLT) MCH 34.2 pg 27.0-3 3.0 high Not Available [facility] [address], [address], 07/10/2024 07:14:04 07/10/1907/10/2024 CBC (INCL UDES DIFF/ PLT) MCHC 34.0 g/dL 32.0-3 6.0 normal For adult s, a sligh t decre ase in the calcu lated MCHC value (in the range of 30 to 32 g/dL) is most likel y not clini aspen signi raymond t; darshana er, it shoul d be inter prete d with cauti on in [facility] n with other red cell emilia eters and the patie nt's clini marcell condi tion. Not Available [facility] [address], [address], 07/10/2024 07:14:04 07/10/1907/10/2024 CBC (INCL UDES DIFF/ PLT) RDW 12.8 % 11.0-1 5.0 normal Not Available [facility] [address], [address], 07/10/2024 07:14:04 07/10/19 25 07/10/2024 CBC (INCL UDES DIFF/ PLT) platelet count 276 thous and/u L 140-40 0 normal Not Available [address], [address], 07/10/2024 07:14:04 07/10/19 25 07/10/2024 CBC (INCL UDES DIFF/ PLT) MPV 9.4 fL 7.5-12 .5 normal Not Available [address], [address], 07/10/2024 07:14:04 07/10/19 25 07/10/2024 CBC (INCL UDES DIFF/ PLT) absolute neutrophils 4730 cells /uL 1500-7 800 normal Not Available [address], [address], 07/10/2024 07:14:04 07/10/19 25 07/10/2024 CBC (INCL UDES DIFF/ PLT) absolute lymphocytes 4600 cells /uL 850-39 00 high Not Available [address], [address], 07/10/2024 07:14:04 07/10/19 25 07/10/2024 CBC (INCL UDES DIFF/ PLT) absolute monocytes 530 cells /uL 200-95 0 normal Not Available [address], [address], 07/10/2024 07:14:04 07/10/19 25 07/10/2024 CBC (INCL UDES DIFF/ PLT) absolute eosinophils 100 cells /uL 15-500 normal Not Available [address], [address], 07/10/2024 07:14:04 07/10/19 25 07/10/2024 CBC (INCL UDES DIFF/ PLT) absolute basophils 40 cells /uL 0-200 normal Not Available [facility] [address], [place], [address], 07/10/2024 07:14:04 07/10/19 25 07/10/2024 CBC (INCL UDES DIFF/ PLT) neutrophils 47.3 % normal Not Available [address], [address], 07/10/2024 07:14:04 07/10/19 25 07/10/2024 CBC (INCL UDES DIFF/ PLT) lymphocytes 46.0 % normal Not Available [facility] [address], [address], 07/10/2024 07:14:04 07/10/19 25 07/10/2024 CBC (INCL UDES DIFF/ PLT) monocytes 5.3 % normal Not Available [address], [address], 07/10/2024 07:14:04 07/10/1907/10/2024 CBC (INCL UDES DIFF/ PLT) eosinophils 1.0 % normal Not Available [address], [address], 07/10/2024 07:14:04 07/10/19 25 07/10/2024 CBC (INCL UDES DIFF/ PLT) basophils 0.4 % normal Not Available [address], [address], 07/10/2024 07:14:04 07/10/1907/10/2024 VITAM IN D,25- OH,TO ROXANA,I A vitamin D,25-oh,tota l,ia 55 NG/mL 30-100 normal Vitam in D Statu s 25-OH Vitam in D: Defic iency : <20 ng/mL Insuf ficie ncy: 20 - 29 ng/mL Optim al: > or = 30 ng/mL For 25-OH Vitam in D testi ng on patie nts on D2-hernandez pplem entat ion and patie nts for whom quant itati on of D2 and D3 fract ions is requi red, the [facility](TM ) 25-OH VIT D, (D2,D 3), LC/MS /MS is recom stef d: order code 15658 (kirill ents >2yrs ). See Note 1 Note 1 For addit ional infor molly forman e refer to http: //[facility] juli araujo.Que stDia gnost ics.c om/fa q/FAQ 199 (This link is being provi ded for infor kathleen marrero/ educa bridget l purpo ses only. ) Not Available [employer] [facility] [address] [place], [address], 07/10/2024 07:14:06 07/10/19 25 07/10/2024 TSH W/REF YOHANA TO FT4 TSH w/reflex to FT4 1.15 mIU/L normal Refer ence Range > or = 20 Years 0.40- 4.50 Pregn aiyana Range s First trime ster 0.26- 2.66 Secon d trime ster 0.55- 2.73 Third trime ster 0.43- 2.91 Not Available [facility] [address] [place] [address], [place], [address], 07/10/2024 07:14:07 07/10/19 25 07/10/2024 HEMOG LOBIN A1C hemoglobin A1C 5.6 %_of_ total _HGB <5.7 normal For the purpo se of screyaw avendaño for the prese nce of diabe humberto: <5.7% Consi stent with the absen ce of diabe humberto 5.7-6 .4% Consi stent with incre ased risk for diabe humberto (pred iabet es) > or =6.5% Consi stent with diabe humberto This assay resul t is consi stent with a decre ased risk of diabe humberto. Curre ntly, no conse nsus exist s cecily mehta use of hemog lobin A1c for diagn osis of diabe humberto in child janeth. Accor ding to Ameri can Diabe humberto Assoc iatio n (ADA) guide lines , hemog lobin A1c <7.0% repre sents optim al contr ol in non-p regna nt diabe tic patie nts. Diffe rent metri cs may apply to speci fic patie nt popul ation s. Stand ards of Medic al Care in Diabe humberto(A DA). Not Available [facility] [address], [place], [address], 07/10/2024 07:14:08 09/07/19 24 09/07/2023 CT, abdom en + pelvi s, w/ contr ast No observ ation record ed. [address] [facility], [place], [address], 09/21/2023 14:26:13 09/07/19 24 09/07/2023 XR, chest , 1 view No observ ation record ed. [address], [place], [address], 09/21/2023 14:26:29 Result Notes None recorded. Problems Name Problem SNOMED Code Status Onset Date Resolution Date Notes Provider Name and Address Organization Details Recorded Time Tobacco user 779180145 Active Not Available [facility] 3 09:17:53 Chronic obstructiv e pulmonary disease 42907461 Active Not Available [facility] 3 09:17:53 Type 2 diabetes mellitus without complicati on 419781150 Active Not Available [facility] 3 09:17:53 Restless legs 95731831 Active Not Available [facility] 3 09:17:53 Adjustment disorder with anxious mood 76753343 Active Not Available [facility] 3 09:17:54 Hyperlipid emia 07410434 Active Not Available [facility] 3 09:17:54 Fatigue 62003225 Active Not Available [facility] 3 09:17:54 Skin lesion 44877080 Active Not Available [facility] 3 09:17:54 Pain in right hand 624619983275 109 Active 2022 Stacey Caldwell MD [address], [place], [address] , [place] [facility] 3 11:26:12 Lateral epicondyli tis of right humerus 573851793846 107 Active 2022 Pee Inman MD [address], [place], [address] , [place] [facility] 3 11:57:27 Carpal tunnel syndrome of right wrist 630415683209 108 Active 2022 Pee Inman MD [address], [place], [address] , [place] [facility] 3 11:57:33 Vitamin D deficiency 89117587 Active 2022 Stacey Caldwell MD [address], [address], [place], [address] , [place] [facility] 3 08:01:44 Tubular adenomatou s polyp of colon 946610253 Active 2022 cscope 06/03/22 repeat 5 years Stacey Caldwell MD [address], [place], [address] , [place] [facility] 3 09:09:27 Type 2 diabetes mellitus 20560120 Active 2022 Stacey Caldwell MD [address], [place], [address] , [place] [facility] 3 09:18:37 Insomnia 636923966 Active 2023 Stacey Caldwell MD [address], [place], [address] , [place] [facility] 4 12:00:14 Amenorrhea 27940877 Active 2023 ADRIANNA Storm [address], [place], [address] , [place] [facility] 4 09:34:46 Menopausal symptom 14635817 Active 2023 ADRIANNA Storm [address], [place], [address] , [place] [facility] 4 09:35:56 Arthritis 6731877 Active 2023 ADRIANNA Storm [address], [place], [address] , [place] [facility] 4 09:38:37 Hand wart 694402573 Active 2023 ADRIANNA Stomr [address], [place], [address] , [place] [facility] 4 09:39:37 Chest pain 17159137 Active 2023 ADRIANNA Storm [address], [place], [address] , [place] [facility] 4 09:51:51 Reduced libido 5974094 Active 2024 ADRIANNA Storm [address], [place], [address] , [place] [facility] 5 09:49:57 Problem Notes None recorded. Procedures Surgical History Date Name Laterality Status Provider Name and Address Organization Details Recorded Time 01/01/20 24 Transitional_Care_ Management completed James Acevedo RN [facility] 01/01/2024 09:29:55 06/04/19 23 colonoscopy completed Stacey Caldwell MD [address], [place], [address], [facility] 09/12/2022 09:12:24 04/03/18 98 cholecystectomy completed Tiffanie Quiroz [facility] - [facility] 08/17/2022 09:58:12 04/03/18 89 Hand completed Tiffanie Quiroz [facility] 08/17/2022 09:57:58 destruction of lesion of uterus completed Not Available [facility] 2022 09:13:35 delivery completed Not Available [facility] 2022 09:13:35 Imaging Results None recorded. Procedure Notes None recorded. Medical Equipment None Reported. Allergies Allergen ID Allergen Name Allergen Category Reaction Reaction Severity Criticality Documentation Date Start Date Code Code System Note Provider Name and Address Organization Details Recorded Time [address]404 prednison e medicatio n other Not available Not available 2022 8640 RxNorm swell ing Not Available [facility] 3 09:22:04 Medications Name Sig Start Date [...] by transderm al route for 28 days. 07/02 completed Not Available Not Available Not Available trazodone 50 mg tablet Take 1 tablet every day by oral route. 2024 active Not Available Not Available Not Avai lable azithromyc in 250 mg tablet TAKE 2 [...] TAKE 1 TABLET BY MOUTH EVERY DAY 07/02 completed Not Available Not Available Not Available ondansetro n HCl 4 mg tablet TK 1 T PO Q 6 TO 8 H PRN FOR 7 DAYS 04/09 completed Not Available Not Available Not Available glipizide 10 mg tablet TAKE 1 TABLET BY MOUTH EVERY DAY 07/02 completed Not Available Not Available Not Available sertraline 100 mg tablet TAKE 1 1/2 TABLETS BY MOUTH EVERY DAY 07/11 completed Not Available Not Available Not Available acetaminop hen 300 mg-codeine 30 mg tablet TAKE 1 TABLET BY MOUTH FOUR TIMES DAILY NEEDED 08/17 completed Not Available Not Available Not Available simvastati n 80 mg tablet TAKE 1 TABLET BY MOUTH EVERY NIGHT AT BEDTIME 07/02 completed Not Available Not Available Not Available sulfametho xazole 800 mg-trimeth oprim 160 [...] TAKE 1 TABLET BY MOUTH EVERY DAY 07/02 completed Not Available Not Available Not Available amoxicilli n 875 mg tablet Take 1 tablet every 12 hours by oral route for 7 days. active Not Available Not Available No t Available methocarba mol 750 mg tablet TAKE 2 TABLETS BY MOUTH THREE TIMES DAILY 07/02 completed Not Available Not Available Not Available trazodone 100 mg tablet TAKE 1 [...] 1 PATCH EVERY DAY FOR 42 DAYS 07/02 completed Not Available Not Available Not Available gabapentin 300 mg capsule TAKE 2 CAPSULES BY MOUTH EVERY DAY AT BEDTIME active Not Available Not Available No t Available Banophen 25 mg capsule TAKE 1 CAPSULE BY MOUTH THREE TIMES DAILY NEEDED FOR NAUSEA AND VOMITING 07/02 completed Not Available Not Available Not Available cephalexin 500 mg tablet TAKE 1 [...] by transderm al route for 14 days. 07/02 completed Not Available Not Available Not Available escitalopr am 20 mg tablet TAKE [...] pen injector 0.5 ml sc q week 2024 active Not Available Not Available Not Avai lable Mounjaro 5 mg/0.5 mL subcutaneo us pen injector ADMINISTE R 0.5 ML(5MG) UNDER THE SKIN EVERY WEEK 03/15 completed Not Available Not Available Not Available Mounjaro 10 mg/0.5 mL subcutaneo us pen injector ADMINISTE R 10 MG UNDER THE SKIN EVERY WEEK 07/02 completed Not Available Not Available Not Available Mounjaro 12.5 mg/0.5 mL subcutaneo us pen injector ADMINISTE R 12.5 MG UNDER THE SKIN EVERY WEEK 07/02 completed Not Available Not Available Not Available Mounjaro 2.5 mg/0.5 mL subcutaneo us [...] and Address Organization Details Last Updated DateTime 5 165.1 cm 24.6 kg/m2 70736.6 7 g 98.8 [degF] 91 /min 98 % 98 % 120 mm[Hg] 66 mm[Hg] Suha Grullon MA [place] - [facility] MD [employer] 5 09:29:35 Date Recorded Body height Body mass index (BMI) Body weight Body temperature Heart rate Oxygen saturation Oxygen saturation in Arterial blood by Pulse oximetry Systolic blood pressure Diastolic blood pressure Provider Name and Address Organization Details Last Updated DateTime 4 165.1 cm 26.8 kg/m2 39226.3 7 g 98 [degF] 98 /min 97 % 97 % 120 mm[Hg] 70 mm[Hg] James Acevedo RN [facility] [employer] [facility] 4 10:02:20 Date Recorded Body height Body mass index (BMI) Body weight Body temperature Heart rate Oxygen saturation Oxygen saturation in Arterial blood by Pulse oximetry Systolic blood pressure Diastolic blood pressure Provider Name and Address Organization Details Last Updated DateTime 4 165.1 cm 25.6 kg/m2 88266.2 2 g 98 [degF] 93 /min 98 % 98 % 116 mm[Hg] 70 mm[Hg] James Acevedo RN [facility] [employer] [facility] 4 09:29:16 Date Recorded Body height Body mass index (BMI) Body weight Body temperature Heart rate Oxygen saturation Oxygen saturation in Arterial blood by Pulse oximetry Systolic blood pressure Diastolic blood pressure Provider Name and Address Organization Details Last Updated DateTime 4 165.1 cm 25.3 kg/m2 80112.0 4 g 98 [degF] 88 /min 96 % 96 % 118 mm[Hg] 72 mm[Hg] James Acevedo RN [facility] [employer] [facility] 4 09:31:14 Date Recorded Body height Body mass index (BMI) Body weight Provider Name and Address Organization Details Last Updated DateTime 02/06/2024 165.1 cm 25.4 kg/m2 72578.84 g Christal Davis RN [facility] [employer] [facility] 02/06/2024 11:04:39 Social History Question Answer Notes LastModified by Organizat ion Details LastModified Time Tobacco Smoking Status Current Every Day Smoker Not Available [employer] 2022 09:13:14 What Is Your Level Of Caffeine Consumption? Moderate Information not available 07/02/2024 In The 14 Days Before Symptom Onset, Have You Had Close [facility] While That Case Was Ill? No [id number] Information not available 2022 In The 14 Days Before Symptom Onset, Have You Had Close Contact With A Person Who Is Under Investigation For COVID-19 While That Person Was Ill? No [id number] Information not available 2022 What Type Of Diet Are You Following? REGULAR [id number] Information not available 2022 Have There Been Any Changes To Your Family Or Social Situation? No Information not available 07/02/2024 Do You Use Insect Repellent Routinely? No Information not available 07/02/2024 Where Do You Live? SingleLevelHouse Information not available 07/02/2024 What Was The Date Of Your Most Recent Tobacco Screening? 07/02/2024 Information not available 07/02/2024 How Many Children Do You Have? 2 Information not available 07/02/2024 Do You Have Any Pets? Yes Information not available 07/02/2024 What Is Your Relationship Status? Information not available 07/02/2024 Do You Use Your Seat Belt Or Car Seat Routinely? Yes Information not available 07/02/2024 Do You Have Smoke And Carbon Monoxide Detectors In Your Home? Yes Information not available 07/02/2024 At What Age Did You Start Smoking Tobacco? 21 Information not available 07/02/2024 Are You Passively Exposed To Smoke? Yes Information not available 07/02/2024 Are There Any Smokers In Your House? No Information not available 07/02/2024 How Much Tobacco Do You Smoke? 1 PPD Information not available 08/17/2022 Do You Participate In Social Media? Yes Information not available 07/02/2024 How Many Years Have You Smoked Tobacco? 33 [id number] Information not available 07/03/2024 Have You Recently Traveled Abroad? No Information not available 07/02/2024 Are You Currently In School? No Information not available 07/02/2024 Do You Have Any Dietary Restrictions? No [id number] Information not available 2022 Sex: Unknown Functional Status Question Answer Note LastModified by Organizat ion Details LastModified Time Do you use any illicit or recreational drugs? No [id number] Information not available 2022 Do you or have you ever used any other forms of tobacco or nicotine? No Information not available 07/02/2024 What is your level of alcohol consumption? Occasional Information not available 08/17/2022 Are you currently employed? Yes Information not available 07/02/2024 What is your exercise level? None [id number] Information not available 2022 Mental Status Question Answer Note LastModified by Organization D etails LastModified Time Do you feel stressed (tense, restless, nervous, or anxious, or unable to sleep at night)? [id number] Information not available 07/02/2024 Family History Relationship Description Onset Age of this Age Resolved Age Notes LastModified by Organization Details LastModified Time Father Malignant neoplasm of lung [id number] Not available 2022 09:13:37 Mother Malignant tumor of breast [id number] Not available 2022 09:13:37 Mother Hypertensive disorder Not available 2022 09:57:08 Medical History Condition Response DIABETES, TYPE Y ARTHRITIS Y Gynecological History Statement/Question Response Date of LMP STIs/STDs N Dislike of Light during Menstrual Headac he N Current Control Method BCPs Most Recent Mammogram Breast Problems no How many live births 2 Date of Last Mammogram 10/03/2022 Date of Last Colonoscopy Most Recent Bone Density Sexually Active? Y Date of Last Pap Smear Discharge no Obstetrics History GPAL:G 2 P 2 0 0 2 Type Value Multiple Births 0 Full Term 2 Induced 0 Spontaneous 0 Premature 0 Living 2 Ectopics 0 Total 2 Immunizations Vaccine Type Date Status Note Provider Nam e and Address Organization Details Recorded Time Tdap 10/26/2022 completed James Acevedo RN null, [place] - [facility] 10/26/2022 10:08:03 Past Encounters Encounter ID Performer Location Encounter Start Date Encounter Closed Date Diagnosis/Indication Diagnosis SNOMED-CT Code Diagnosis ICD10 Code Diagnosis Note [id number] Stacey Caldwell MD S[facility] Primary Care [facility] [address] [facility] [address] [place] [address] 09/09/2021 00:00:00 09/09/2021 09:02:[id number] [facility] [place] [facility] [address] [facility] [address] [place] [address] 11/17/2021 00:00:00 11/17/2021 14:31:51 [id number] [facility] [place] [facility] [place] [address] 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 Primary Care [facility] [address] [facility] [address] [place] [address] 09/12/2022 09:01:16 09/12/2022 09:33:35 Adult health examination 691462068 Z00.00 Colonoscop y done 06/03/22 repeat in 1 yearMammog sari and paps with gynLDCT ordered, smoking cessation recommende dFasting labs up to dateYearly flu vacccine and covid vaccines per cdc guidelines recommend shingles vaccine series Tobacco user 132891487 Z 72.0 recommend smoking cessationh as smoked 1 ppd since age 19, will get LDCT Type 2 savita betes mellitus 62636295 E11.9 Most recent a1c 7.9, goal is 7 or lowerconti nue metformin and glipizideu p to date with eye exam and urine microalbum in (09/23)on statinbegi n mounjaro 2.5 mg sc qweek, plan to titrate up monthly as long as toleratedr eviewed potential med s/e and how to use properly [id number] Stacey Caldwell MD [facility] Primary Care [facility] [address] [facility] [address] [facility] [place] [address] 10/26/2022 09:39:35 10/26/2022 12:21:21 Type 2 diabetes mellitus 99406275 E11.9 Most recent a1c 7.9, goal is 7 or lowerconti nue metformin and glipizideu p to date with eye exam and urine microalbum in (09/23)on statinincr ease mounjaro 7.5 mg sc qweek, plan to titrate up monthly as long as toleratedf /u in 3 months or sooner if needed Active or passive immunization 597994425 Z23 will be providing childcare to tomasby due in February Stacey Caldwell MD [facility] Primary Care [address] [place] [address] 03/15/2023 09:57:47 03/15/2023 12:39:38 Restless legs 74342810 G25.81 -has been an issue for years-take s gabapentin currently, 100mg tid, and 300mg at bedtime-faria s taken ropinirole in the past which worked for a while, and then-will plan to continue to take the gabapentin as she has been-addin g ropinirole 1mg [id number] Stacey Caldwell MD [facility] Primary Care [address] [facility] [place] [address] 05/10/2023 14:05:21 05/10/2023 15:27:21 Insomnia 689287176 G47.00 doing welldecrea se to 50 mg pt does not need full tab [id number] Stacey Caldwell MD [facility] Primary Care [address] [facility] [place] [address] 08/08/2023 09:49:44 08/08/2023 10:31:29 Insomnia 021599917 G47.00 doing welldecrea se to 50 mg pt does not need full tab 08/08/23: doing well on gabapentin 300 mg 2 tabs po qhs Adjustment disorder with anxious mood 99297350 F43.22 stable, refill given [id number] LIAM Storm-Carrie [facility] Primary Care [address] [facility] [place] [address] 11/21/2023 09:20:32 11/21/2023 11:06:23 Menopausal symptom 43752768 N95.1 Will check labs as listed below.Cont inue taking menopause support capsules Arthritis 9178495 M19.90 Discussed with patient to stop the use of OTC NSAIDs while taking this medication . Casimiro wart 969938013 B07. [id number] [facility] Primary Care [facility] [address] [facility] [address] [facility] [place] [address] 01/01/2024 09:19:22 01/01/2024 10:38:43 Transition of care 6295255229 105 Z75.8 Type 2 savita betes mellitus without complication 008328911 E11.9 Chest pain 19208428 R07. 9 went to ER on 12/06/23Fol lows up with Cardiologi on Monday. [id number] ADRIANNA Storm [facility] Primary Care [facility] [address] [facility] [address] [facility] [place] [address] 02/06/2024 10:56:36 02/06/2024 11:05:[id number] [facility] Primary Care [facility] [address] [facility] [address] [facility] [place] [address] 07/02/2024 09:18:46 07/02/2024 09:53:00 Adult health examination 824776562 Z00.00 Discussed medication compliance and routine follow up.Discuss ed healthy diet and routine exercise.Ashley gonzaleziewed vaccine records and made recommenda tions as needed.Enc ouraged annual eye and dental exams, as well as twice yearly dental cleanings. Will check screening labs as listed below. Reduced libido 6780357 R 68.82 Wishes to discuss with her COUNTER WEIGHER at her next appt. Tobacco user 510065576 Z 72.0 Hyperlipidemia 17272517 E78.5 Type 2 savita betes mellitus without complication 166834933 E11.9 Vitamin D deficiency 347 65050 E55.9 Thyroid di sorder screening 279750895 Z13.29 Health Concerns Section Related Observation LastModified by Organization Detai ls LastModified Time None Recorded Concern Status LastModified by Organization Details LastModified Time None Recorded Advance Directives Directive None Recorded Payers Encounter Date Sequence Insurance Name Policy Number Policy Colon Covered Member ID Colon Member ID Guarantor Name 08/08/2023 1 [place] [id number] Maria Victoria Velarde [id number] Maria Victoria Velarde 11/21/2023 1 [place] [id number] Maria Victoria Velarde [id number] Maria Victoria Velarde 01/01/2024 1 [place] [id number] Maria Victoria Velarde [id number] Maria Victoria Velarde 02/06/2024 1 [place] [id number] Maria Victoria Velarde [id number] Maria Victoria Velarde 07/02/2024 1 [place] [id number] Maria Victoria Velarde [id number] Maria Victoria Velarde Notes Date Note Type Note Provider Name and Address Organization Details Recorded Time 08/08/2023 text/html wonders if she i s menopausalno periods from ablationforgetful, harp, irritable 1/2 tab trazodone is working well update: sleeping well on gabapentin 600 mg po qhs,off ropinirole and trazodone Stacey Caldwell MD [address] [place] [address], [place], [address], [facility] [employer] 08/20/2023 13:21:12 11/21/2023 text/html Patient is a [...] breath, nausea vomiting and diarrhea. ADRIANNA Storm [address], [place], [address], [employer] 11/21/2023 11:02:14 01/01/2024 text/html Patient is a 53 year old female that presents to the office for hospital follow up. Patient reports she went to [facility] on 12/05 for sudden onset chest pain. Patient reports she was admitted and all testing was normal. Patient follows up with Cardiology on Monday.Patient denies recurrence of chest pain since that incident but reports intermittent chest pressure. Patient reports she is doing well on Mounjaro 10mg. 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 ADRIANNA Storm [address], [place], [address], [employer] 01/02/2024 10:14:03 07/02/2024 text/html Patient is a 54 year old female that presents to the office for annual wellness. Patient reports issues with sleeps, gets at most 6 hours of consecutive sleep nightly, sometimes feels rested when she wakes up but then needs a nap during the day. Patient reports she has tried Melatonin and Tylenol PM but it does not help her sleep longer. Patient denies issues falling asleep. Patient is currently every day smoker, smokes 1ppd for the last 20 years. labs- ordered (Julia)WWE- scheduled (sees COUNTER WEIGHER)Mammogram- sees GYNColonoscopy- UTD (repeat 2029)LDCT-ordered (Robert)Flu- declinesCovid- UTDTdap- UTD (10/2022)Shingles- aware ADRIANNA Storm [address], [place], [address], [employer] 07/03/2024 12:27:59 OBGyn Episode No OBEpisode recorded.
--- OUTSIDE RECORDS SUMMARY | 2024-09-09 07:48 | XMS_ITS | Referral Summary ---
Author Organization [facility] [address] Address [address] [place] [address] Care Team Providers Care [employer] Developer Name Role Phone Stacey Caldwell MD Unavailable [phone] Stacey Phillip DO Unavailable Richard Sykes NP Primary Care Provider [phone] Encounters Date Type Department Care Team Description 06/21/2024 Results Follow-Up [facility] at [address] [address] Mary Arshad NP XR Knee Right 3 Vw 06/21/2024 8:20 AM CDT Ancillary Procedure [facility] Imaging at [address] [address] Acute pain of right knee 06/21/2024 8:00 AM CDT Office Visit [facility] at [address] [address] Mary Arshad NP Acute pain of right knee (Primary Dx) from Last 3 Months Allergies Active Allergy Reactions Criticality Noted Date [...] daily AND 7 mg daily. 14 patch 4 Active Active Problems Problem Noted Date Diagnosed Date Tobacco abuse counseling 01/05/2024 Hyperlipidemia associated with type 2 diabetes m ellitus 01/05/2024 Coronary artery calcification 01/05/2024 Other chest pain 12/07/2023 Social History Tobacco Use Types Packs/Day Years Used Date Smoking Tobacco: Every Day Cigarettes Tobacco Cessation:Ready to Q uit: Not Asked; Counseling Given: Not Answered [facility] [employer] Answer Date Recorded In the past 12 months has [facility], gas, oil, or water [employer] threatened to shut off services in your [...] often do you attend chur ch or roman catholic services? Never 12/07/2023 Do you belong to any clubs o r organizations such as confucianism groups, unions, fraternal or athletic groups, or [...] time in the past 12 m [facility], were you homeless or living in a retirement (including now)? No 12/07/2023 Personal Safety Answer Date Recorded Have you ever been in or are you currently in a harmful physical or emotional relationship or is someone making you feel afraid or unsafe? 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 LB T: Report ID: [id number] Reading Location: [id number] Procedure Note Abundio Rogel MD - 06/21/2024 [...] 10:32 AM - Electronically signed by Abundio RANGEL T: Report ID: [id number] Reading Location: [id number] Mary Arshad NP IMG XR PROCEDURES Final Result * eGFR [...] of Race in Diagnosing Kidney Disease, JASN 202). The CKD-EPI equation should not be used for patients with unstable renal function and has not been validated in children and those over 70. Current interpretive data was last reviewed 2021. Blood 12/07/2023 4:35 AM CDT 12/07/2023 4:46 AM CDT Evelyn Negron NP LAB BLOOD ORDERABLES Final R esult Performing Organization Address [facility] de Phone Number AMANDA [address] Department [place] [address] * (ABNORMAL) Hemoglobin A1c (12/07/2023 4:35 AM CDT) Hgb A1C 5.7(H) 4.0 - 5.6 % Estimated Average Glucose 117 mg/dL AMANDA ALDANA Comment: The ADA recommends reporting an estimated Average Glucose (eAG) with all Hemoglobin A1c results using the equation derived from a study of 507 normal and diabetic adults. Minority populations were underrepresented and children were not included. (Diabetes Care 31:8852-0188, 2008). The eAG is not equivalent to a fasting glucose. Blood 12/07/2023 4:35 AM CDT 12/07/2023 4:46 AM CDT Evelyn Negron NP LAB BLOOD ORDERABLES Final R esult Performing Organization Address [facility] de Phone Number AMANDA [address] Department [place] [address] * (ABNORMAL) Lipid panel (12/07/2023 4:35 AM CDT) Pathologist [facility] Cholesterol 156 30 - 199 mg/dL Comment: [...] revised on 2023. Non-HDL Cholesterol 111 mg/dL AMANAD ALDANA Comment: Interpretive Data Ages < or [...] BLOOD ORDERABLES Final R esult AMANDA ALDANA [address] Department [place] [address] from Last 3 Months or Most Recently Relevant to Health Maintenance [place] [facility] Advance Directives For more information, please contact: [phone] * Full Code (Latest Code Status on File) Date Activated Date Inactivated Comments 12/07/2023 1:20 AM 12/07/2023 9:46 PM * Full Code Date Activated Date Inactivated Comments 12/07/2023 1:08 AM 12/07/2023 1:20 AM Healthcare Agents on File Name Relationship Healthcare Agent Relationshi p Communication Juan Velarde Spouse Health Care Agent Care Teams [employer] A[employer] Developer Relationship Specialty Start Date End Date Richard Sykes NP [address] [place] [place] [address] PCP - General Family Medicine 06/21/24 Stacey Caldwell MD [address] [place] [address] Family Medicine 06/20/24 Stacey Phillip DO [facility] [address] [place] [address] Consulting Physician Cardiology 12/07/23
== END 2024-09-09 07:42 | disposition home or self-care (01) ==
PROVIDERS: PCP Nurse Practitioner Family; Visit Provider Nurse Practitioner Family
DX: Z12.2 Encounter for screening for malignant neoplasm of respiratory organs (principal); Z87.891 Personal history of nicotine dependence
CPT/HCPCS: 71271

== ENCOUNTER 2024-11-05 11:16 | Outpatient (CLI) | payer BC, SELFPAY ==
--- NOTE | ~2024-11-05 | MM_ITS ---
EXAMINATION: MM screening beny BI w pradeep HISTORY: Screening TECHNIQUE: Craniocaudal and mediolateral oblique 3-D tomosynthesis images were obtained and synthetic 2-D images were generated. CAD analysis was submitted and interpreted. COMPARISON: Comparison to multiple prior studies sequentially, with oldest reviewed study dated 2019. BREAST PARENCHYMAL COMPOSITION: There are scattered areas of fibroglandular density. FINDINGS: There is no evidence of suspicious mass, calcification, or architectural distortion to sug gest malignancy in either breast. IMPRESSION: 1. No mammographic evidence of malignancy. 2. Recommend routine screening mammography in one year. BI-RADS Category 1: Negative Reviewed, dictated and finalized at location B.
== END 2024-11-05 11:17 | disposition home or self-care (01) ==
PROVIDERS: PCP Nurse Practitioner Family; Visit Provider Nurse Practitioner Family
DX: Z12.31 Encounter for screening mammogram for malignant neoplasm of breast (principal)
CPT/HCPCS: 77063; 77067

== ENCOUNTER 2025-01-10 08:18 | Emergency (ER) | payer BC, SELFPAY ==
[2025-01-10 08:24] VITALS: BP 123/76; PULSE 63; RESP 16; TEMP 36.5; O2SAT 98
--- NOTE | 2025-01-10 08:45 | ED.URI ---
HPI - URI/Sore Throat General Chief Complaint: Upper Respiratory Infection Stated Complaint: sinus congestion Time Seen by Provider: 01/10/25 08:40 Source: patient, RN notes reviewed and old records reviewed Mode of arrival: ambulatory Limitations: no limitations History of Present Illness HPI Narrative: 54 year old female who presents to express care with 2 week duration of sinus congestion drainage, sinus pressure and headache pain in frontal area. Patient reports that she has taken Mucinex and also some allergy sinus medication that had Sudafed in it without any improvement in her symptoms. Patient states that she called her doctor and was unable to be seen was told to go to urgent care. Patient is daily smoker of 1ppd for many years. Patient reports that she can't tolerate nasal sprays. Patient reports that she has not had any fevers, chills or sweats. MD elicited complaint: rhinorrhea, nasal congestion and sinus pain Onset (ago): week(s) (2) Severity: moderate Description of mucous: yellow Able to tolerate fluids by mouth: Yes Treatments prior to arrival: other (Mucinex and allergy sinus medication) Related Data Home Medications ?Medication ?Instructions ?Recorded ?Confirmed ?Last Taken ?Type escitalopram oxalate 20 mg tablet 30 mg PO DAILY 05/22/20 08/28/24 04/29/24 History (Lexapro) gabapentin 100 mg capsule 100 mg PO BID 05/22/20 08/28/24 04/29/24 History gabapentin 300 mg capsule 300 mg PO DAILY 05/22/20 08/28/24 04/29/24 History metformin 500 mg tablet 500 mg PO BID 05/22/20 08/28/24 04/29/24 History simvastatin 80 mg tablet 80 mg PO QPM 04/29/24 08/28/24 04/29/24 History tirzepatide 7.5 mg/0.5 mL 7.5 mg subcut WEEKLY 04/29/24 08/28/24 05/06/24 History subcutaneous pen injector (Franck) aspirin 81 mg tablet,delayed mg 01/10/25 Unknown History release meloxicam 15 mg tablet mg 01/10/25 Unknown History omega 5-xqc-gyh-fish oil 1,000 mg 1 cap PO DAILY 01/10/25 Unknown History (120 mg-180 mg) capsule (Fish Oil) Allergies Allergy/AdvReac Type Severity Reaction Status Date / Time prednisone AdvReac Unknown Swelling Verified 01/10/25 08:38 Review of Systems Review of Systems: CONSTITUTIONAL: Reports malaise,no chills, sweats, or fever. EYES: Denies visual changes, redness, or discharge. ENT: Reports rhinorrhea, congestion, sinus pain, no otalgia and no sore throat. CARDIOVASCULAR: Denies chest pain, palpitations, or edema. RESPIRATORY: Reports no acute cough.? Denies dyspnea. GASTROINTESTINAL: Denies abdominal pain, nausea, vomiting, diarrhea SKIN: Denies rash or itching. MUSCULOSKELETAL: Denies myalgia. NEUROLOGIC: Reports frontal headache. All systems reviewed & are unremarkable except as noted in HPI and below PMFSH Past Medical History Medical History Adenomatous colon polyp Smoker Diverticulosis Hyperlipidemia Type II diabetes mellitus Restless leg syndrome Surgical History Surgical History History of colonoscopy 06/03/22 History of endometrial ablation History of cholecystectomy History of tonsillectomy History of section x 2 Family History Family History Mother Hypertension Family history of malignant neoplasm of breast in first degree relative Social History Social History Years smoked: 20 Smoking status: Current every day smoker Tobacco type: cigarettes Second hand tobacco smoke exposure: No Alcohol intake: never Substance use: never Lack of Transportation: No Lack of Food: Never True Current Housing: I Have Housing Concerned About Future Housing: No Difficulty Paying Gas/Electric Bills: No Difficulty Paying for Meds: No Currently Unemployed: No Education: Trade/Vocational Certificate Difficulty w/ Childcare or Family Care: No Living arrangements: with family Additional living arrangements comments: with and daughter Occupation/Education: occupation Gender identity (if verbalized by the patient): Female Sexual Orientation (if Verbalized by the Patient): Straight or Heterosexual Spiritual care concerns: No Comments At time of signature, agree with nursing past medical, surgical, social and family history. There is no relevant family history pertinent to the presenting complaint Exam Narrative: GENERAL: Well-appearing, well-nourished, and in no acute distress. HEAD: Normocephalic EYES: PERRLA, conjunctivae clear ENT: Nares clear, turbinates edematous and erythematous, clear to yellow tinged discharge, sinus pressure and frontal headache pain. Mucous membranes moist. TM pearly alaniz with dull light reflex bilaterally; no tragal tenderness. Oropharynx erythematous without lesions. Tonsils not present and throat without exudate, no drooling, no hoarseness, no trismus, uvula midline. post nasal drainage NECK: Supple. No lymphadenopathy CHEST: Clear to auscultation, breath sounds equal. No wheezing, rhonchi, rales, or stridor. No respiratory distress, speaks in full sentences.dry cough noted SAO2 98% on room air HEART: Regular rate and rhythm. No murmur heard. SKIN: Warm, dry, no rash. NEURO: Alert and oriented x3. PSYCH: Normal mood and affect Course Course Emergency Course: Patient is aware of diagnosis, understands and agrees to treatment plan.? Anticipatory guidance given.? Patient agrees to follow-up as directed and is aware of reasons to seek care at the emergency department. Portions of this record may have been created with voice recognition software Level of Care: Express Care Visit Vital Signs Vital signs: Vital Signs Temperature 36.5 C 01/10/25 08:24 Pulse Rate 63 01/10/25 08:24 Respiratory Rate 16 01/10/25 08:24 Blood Pressure 123/76 01/10/25 08:24 Pulse Oximetry 98 01/10/25 08:24 Oxygen Delivery Room Air 01/10/25 08:24 Temperature 36.5 C 01/10/25 08:24 Pulse Rate 63 01/10/25 08:24 Respiratory Rate 16 01/10/25 08:24 Blood Pressure 123/76 01/10/25 08:24 Pulse Oximetry 98 01/10/25 08:24 Oxygen Delivery Room Air 01/10/25 08:24 Reviewed MDM - URI/Sore Throat MDM Narrative Medical decision making narrative: Differential diagnosis considered: [place] virus, strep pharyngitis, allergic rhinitis, upper respiratory tract infection, sinusitis, rhinosinusitis, nasopharyngitis. viral pharyngitis, otitis media, otitis externa, pneumonia, bronchitis, viral cough syndrome, viral syndrome, and influenza.? Exam findings show no acute concerns or changes; patient is non-toxic appearing and is in no distress.? Patient is appropriate for outpatient treatment and follow-up. Differential Diagnosis Differential diagnosis: Likely upper respiratory infection, sinusitis, viral infection and other (rhinosinusitis) Medical Records Attestation: I reviewed the patient's medical records. Lab Data Attestation: I reviewed the patient's lab results. Critical Care Time Critical Care Time Critical Care Time: No Discharge Plan Discharge Clinical Impression: Sinusitis Qualifiers: Sinusitis location: pansinusitis Chronicity: acute Recurrence: not specified as recurrent Qualified Code(s): J01.40 - Acute pansinusitis, unspecified Patient Disposition: Home Condition: Stable Instructions: Antibiotic Form, Sinusitis (ED) Additional Instructions: Increase fluids especially juices and water Xtyc-eto-otaqbty cough and cold medicine of your choice for your symptoms Zyrtec Claritin or Ly daily may use plain Sudafed in a.m. heat to the face 20-30 minutes 4-6 times a day for pain Salt water gargles, throat lozenges or throat sprays as desired Antibiotic as directed--finish the medication as prescribed take with food recommend probiotic or eating Activia yogurt while on this medicine If your symptoms persist, change or worsen significantly before you can contact your personal physician then please, without delay, go to the emergency department for further evaluation. Follow-up with PCP in 7-10 days or sooner if needed Patient Language: Albanian Prescriptions: New amoxicillin-pot clavulanate 875-125 mg tablet 1 tablet PO Q12H Qty: 20 0RF Rx Instructions: Take all doses of oral antibiotics with food No Action meloxicam 15 mg tablet aspirin 81 mg tablet,delayed release (DR/EC) omega 9-jed-dog-fish oil [Fish Oil] 1,000 (120-180) mg capsule 1 cap PO DAILY metformin 500 mg tablet 500 mg PO BID escitalopram oxalate [Lexapro] 20 mg tablet 30 mg PO DAILY gabapentin 300 mg capsule 300 mg PO DAILY Rx Instructions: 1 capsule QHD gabapentin 100 mg capsule 100 mg PO BID simvastatin 80 mg tablet 80 mg PO QPM Mounjaro 7.5 mg/0.5 mL pen injector 7.5 mg SUBCUT WEEKLY Follow-up/Referrals: Robert,Carleen Guadalupe NP [Primary Care Provider, Unknown] Time of Disposition: 08:56 Quality [place] Coma Scale Eyes: Open Verbal: Oriented and Alert Motor: Follows Commands Yovani Coma Total Score: 15
== END 2025-01-10 09:03 | disposition home or self-care (01) ==
PROVIDERS: Emergency Provider Registered Nurse; PCP Nurse Practitioner Family
DX: J01.40 Acute pansinusitis, unspecified (principal); F17.210 Nicotine dependence, cigarettes, uncomplicated; E11.9 Type 2 diabetes mellitus without complications; Z79.84 Long term (current) use of oral hypoglycemic drugs; Z79.85 Long-term (current) use of injectable non-insulin antidiabetic drugs; E78.5 Hyperlipidemia, unspecified; G25.81 Restless legs syndrome; Z79.82 Long term (current) use of aspirin
CPT/HCPCS: 99213; G0463